=== PATIENT | female | born 1950 | race American Indian/Alaskan Native ===

== ENCOUNTER 2018-01-13 13:40 | Emergency (ER) | payer MEDICARE ==
[2018-01-13 13:45] VITALS: BMI 31.4
[2018-01-13 13:49] VITALS: BP 122/69; PULSE 53; RESP 18; TEMP 97.7; O2SAT 99
--- NOTE | 2018-01-13 14:44 | RAD ---
PROCEDURE: Right Hand Radiographs. HISTORY: 5th finger pain s/p fall COMPARISON: None. FINDINGS: BONES: Bone alignment and mineralization normal. There is no acute displaced fracture or bone destruction. JOINTS: Normal. SOFT TISSUES: Normal. OTHER FINDINGS: None. IMPRESSION: No acute fracture or dislocation.
--- NOTE | 2018-01-13 15:01 | C.PDOC ---
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 Patient states she tripped on uneven pavement and fell onto her outstretched hands. She now complains of pain to her right 5th finger, left palm , and left knee. Patient denies head injury, LOC, neck pain. denies chest pain, shortness of breath, dizziness prior to fall. . Time Seen by Provider: 01/13/18 14:00 Chief Complaint (Nursing): Upper Extremity Problem/Injury History Per: Patient Onset/Duration Of Symptoms: Days Current Symptoms Are (Timing): Still Present Quality: "Pain" Additional History Per: Patient Past Medical History Reviewed: Historical Data, Nursing Documentation, Vital Signs Vital Signs: Last Vital Signs Temp 97.7 F 01/13/18 13:45 Pulse 53 L 01/13/18 13:45 Resp 18 01/13/18 13:45 BP 122/69 01/13/18 13:45 Pulse Ox 99 01/14/18 15:32 - Medical History PMH: No Chronic Diseases Surgical History: No Surg Hx Family History: States: Unknown Family Hx - Social History Hx Alcohol Use: Yes Hx Substance Use: No - Immunization History Hx Tetanus Toxoid Vaccination: No Hx Influenza Vaccination: No Hx Pneumococcal Vaccination: No Review Of Systems Cardiovascular: Negative for: Chest Pain Musculoskeletal: Positive for: Other (pain to right 5th finger, left palm, and left knee ) Neurological: Negative for: Dizziness, Other (head injury/LOC ) Physical Exam - Physical Exam Appears: Non-toxic, No Acute Distress Skin: Normal Color, Warm, Dry Head: Atraumatic, Normacephalic Eye(s): bilateral: Normal Inspection Oral Mucosa: Moist Neck: Normal ROM, No Midline Cervical Tenderness, Supple Chest: Symmetrical, No Deformity, No Tenderness Extremity: Normal ROM (to bilateral upper and lower extremities at all joints), Tenderness (to middle phalanx of right 5th finger and hypothenar eminence of left hand ), No Calf Tenderness, Capillary Refill (less than 2 seconds ), No Deformity, No Swelling Neurological/Psych: Oriented x3, Normal Speech, Normal Cognition Gait: Steady ED Course And Treatment O2 Sat by Pulse Oximetry: 99 (on RA) Pulse Ox Interpretation: Normal - Other Rad right hand XR X-Ray: Interpreted by Me, Viewed By Me, Read By Radiologist Interpretation: PROCEDURE: Right Hand Radiographs. HISTORY: 5th finger pain s /p fall. COMPARISON: None. FINDINGS: BONES: Bone alignment and mineralization normal. There is no acute displaced fracture or bone destruction. JOINTS: Normal. SOFT TISSUES: Normal. OTHER FINDINGS: None. IMPRESSION: No acute fracture or dislocation. Medical Decision Making Medical Decision Making: Progress: Right hand XR ordered and reviewed. Patient given Motrin PO. no fx of right 5th finger, splint applied for comfort, d/c home, f/u ppmd Disposition Counseled Patient/Family Regarding: Studies Performed, Diagnosis, Need For Followup, Rx Given - Disposition Referrals: Laureano Rockwell MD [Staff Provider] - Disposition: HOME/ ROUTINE Disposition Time: 15:00 Condition: GOOD Additional Instructions: Wear splint on 5th finger right for comfort. You may apply cold compresses to finger to help with swelling and pain. Tylenol or Motrin for pain. Follow up with Dr Rockwell in a few days. 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 - Scribe Statement The provider has reviewed the documentation as recorded by the Scribe (Jade Murphy) All medical record entries made by the Scribe were at my direction and personally dictated by me. I have reviewed the chart and agree that the record accurately reflects my personal performance of the history, physical exam, medical decision making, and the department course for this patient. I have also personally directed, reviewed, and agree with the discharge instructions and disposition.
== END 2018-01-13 15:05 | disposition home or self-care (01) ==
LOC: C.ER 13:40
DX: S63.616A Unspecified sprain of right little finger, initial encounter (principal); S60.222A Contusion of left hand, initial encounter; W01.0XXA Fall on same level from slipping, tripping and stumbling without subsequent striking against object, initial encounter; Y92.480 Sidewalk as the place of occurrence of the external cause

== ENCOUNTER 2018-02-09 09:18 | Day surgery (SDC) | payer MEDICARE ==
[2018-02-09 10:03] VITALS: BMI 29.9
[2018-02-09 10:44] VITALS: O2SAT 100
[2018-02-09] MEDS ORDERED: Propofol 10 mg/ml Inj (20 ML) ONE (12:39)
[2018-02-09] MEDS ORDERED: Lactated Ringer's 1,000 ML IV ONE ×2 (12:40)
[2018-02-09 13:29] VITALS: TEMP 98.9
[2018-02-09 13:33] VITALS: RESP 15
[2018-02-09 13:51] VITALS: PULSE 50
[2018-02-09 14:01] VITALS: BP 151/53
== END 2018-02-09 13:58 | disposition home or self-care (01) ==
LOC: C.ENDO 09:18
PROVIDERS: ATTEND Internal Medicine Gastroenterology
DX: Z12.11 Encounter for screening for malignant neoplasm of colon (principal); K64.1 Second degree hemorrhoids; J44.9 Chronic obstructive pulmonary disease, unspecified; F17.210 Nicotine dependence, cigarettes, uncomplicated; K59.00 Constipation, unspecified

== ENCOUNTER 2018-11-06 21:10 | Inpatient (IN) | payer MEDICARE, OTHER ==
[2018-11-06 21:10] VITALS: BMI 29.9
[2018-11-06] MEDS ORDERED: Alum-Mag Hydrox-Simethicone Susp (30 mL) PO STA (22:52)
[2018-11-06 23:21] LABS: BASO % 0.7 % (0.0-2.0); EOS # 0.3 K/uL (0.0-0.7); EOS % 5.4 % (0.0-4.0); HEMOGLOBIN 11.8 g/dL (11.0-16.0); LYMPH # 1.9 K/uL (1.0-4.3); MEAN CELL VOLUME 91.4 fL (81.0-99.0); MEAN CORPUSCULAR HEMOGLOBIN 29.7 pg (27.0-31.0); MEAN CORPUSCULAR HGB CONC 32.4 g/dL (33.0-37.0); MEAN PLATELET VOLUME 9.7 fL (7.2-11.7); MONO # 0.6 K/uL (0.0-0.8); MONO % 11.3 % (0.0-10.0); NEUT # 2.2 K/uL (1.8-7.0); NEUT % 44.6 % (50.0-75.0); NRBC % 0.1 % (0.0-2.0); RBC 3.96 Mil/uL (3.80-5.20)
[2018-11-06] MEDS ORDERED: Alum-Mag Hydrox-Simethicone Susp (30 mL) ONE (23:22)
[2018-11-06 23:30] LABS: INR 1.1
[2018-11-06 23:33] LABS: ALB/GLOB RATIO 1.5 (1.0-2.1); ALT/SGPT 9 U/L (9-52); AST/SGOT 21 U/L (14-36); BLOOD UREA NITROGEN 23 mg/dL (7-17); GFR NON-AFRICAN AMERICAN > 60; LIPASE 115 U/L (23-300)
[2018-11-06 23:45] LABS: B-TYPE NATRIURETIC PEPTIDE 112 pg/mL (0-900)
[2018-11-06 23:53] LABS: SQUAMOUS EPITHIAL 2 /hpf (0-5); URINE BACTERIA RARE (<OCC); URINE BILIRUBIN NEGATIVE (NEGATIVE); URINE BLOOD NEGATIVE (NEGATIVE); URINE CLARITY Clear (Clear); URINE COLOR Yellow (YELLOW); URINE GLUCOSE (UA) NORMAL (Normal); URINE LEUKOCYTE ESTERASE NEG Leu/uL (Negative); URINE PROTEIN NEGATIVE (NEGATIVE)
[2018-11-07] MEDS ORDERED: Iodixanol 320 MG/ML 100 ML BOTTLE IV ONE (00:18)
--- NOTE | 2018-11-07 00:27 | C.PDOC ---
History Of Present Illness 68 year old female presents to the ER with epigastric discomfort since last week. Patient states the pain worsens with bending forward and improves with standing upright, does not change with food. Denies Hx of gastritis or reflux. W as referred by Dr. Rockwell for further evaluation. <Tony He - Last Filed: 11/07/18 00:33> History Per: Patient History/Exam Limitations: no limitations Onset/Duration Of Symptoms: Days Current Symptoms Are (Timing): Still Present Exacerbating Factors: Other (Bending over) Alleviating Factors: Other (Standing upright) Recent travel outside of the [place]: No <Tony He - Last Filed: 11/07/18 00:33> <Reji Edwards - Last Filed: 11/07/18 02:10> Time Seen by Provider: 11/06/18 22:45 Chief Complaint (Nursing): Chest Pain Past Medical History Reviewed: Historical Data, Nursing Documentation, Vital Signs Vital Signs: Last Vital Signs Temp 98.7 F 11/06/18 22:03 Pulse 64 11/06/18 22:03 Resp 20 11/06/18 22:03 BP 154/61 H 11/06/18 22:03 Pulse Ox 98 11/06/18 22:03 - Medical History PMH: COPD, Hypercholesterolemia Denies: Fractures, Chronic Kidney Disease Family History: States: Unknown Family Hx - Social History Hx Alcohol Use: Yes Hx Substance Use: No - Immunization History Hx Tetanus Toxoid Vaccination: No Hx Influenza Vaccination: No Hx Pneumococcal Vaccination: No <Tony He - Last Filed: 11/07/18 00:33> Vital Signs: Last Vital Signs Temp 98.7 F 11/06/18 22:03 Pulse 64 11/06/18 22:03 Resp 20 11/06/18 22:03 BP 154/61 H 11/06/18 22:03 Pulse Ox 98 11/07/18 00:34 <Reji Edwards - Last Filed: 11/07/18 02:10> Review Of Systems Constitutional: Negative for: Fever, Chills Cardiovascular: Negative for: Chest Pain, Palpitations Respiratory: Negative for: Cough, Shortness of Breath Gastrointestinal: Positive for: Abdominal Pain. Negative for: Nausea, Vomiting, Diarrhea Neurological: Negative for: Weakness, Numbness <Neri,Sudhir - Last Filed: 11/07/18 00:33> Physical Exam - Physical Exam Appears: Non-toxic, Other (Obese black female) Skin: Normal Color, Warm, Dry Head: Atraumatic, Normacephalic Eye(s): bilateral: Normal Inspection Oral Mucosa: Moist Neck: Normal, Supple Chest: Symmetrical, No Tenderness Cardiovascular: Rhythm Regular Respiratory: Normal Breath Sounds Gastrointestinal/Abdominal: Soft, No Tenderness, No Distention Back: No CVA Tenderness Neurological/Psych: Oriented x3, Normal Speech <NeriOjSudhir - Last Filed: 11/07/18 00:33> ED Course And Treatment - Laboratory Results Result Diagrams: 11/06/18 23:17 11/06/18 23:17 Lab Results: PT 12.0 SECONDS (9.7-12.2) 11/06/18 23:17 INR 1.1 11/06/18 23:17 APTT 28 SECONDS (21-34) 11/06/18 23:17 D-Dimer, Quantitative 275 ng/mlDDU (0-243) H 11/06/18 23:17 Troponin I < 0.0120 ng/mL (0.00-0.120) 11/06/18 23:17 NT-Pro-B Natriuret Pep 112 pg/mL (0-900) 11/06/18 23:17 Total Bilirubin 0.5 mg/dL (0.2-1.3) 11/06/18 23:17 AST 21 U/L (14-36) 11/06/18 23:17 ALT 9 U/L (9-52) 11/06/18 23:17 Alkaline Phosphatase 81 U/L (38-126) 11/06/18 23:17 Total Protein 6.7 g/dL (6.3-8.3) 11/06/18 23:17 Albumin 4.0 g/dL (3.5-5.0) 11/06/18 23:17 Globulin 2.7 gm/dL (2.2-3.9) 11/06/18 23:17 Albumin/Globulin Ratio 1.5 (1.0-2.1) 11/06/18 23:17 Lipase 115 U/L (23-300) 11/06/18 23:17 Urine Color Yellow (YELLOW) 11/06/18 23:40 Urine Clarity Clear (Clear) 11/06/18 23:40 Urine pH 5.0 (5.0-8.0) 11/06/18 23:40 Ur Specific [place] 1.026 (1.003-1.030) 11/06/18 23:40 Urine Protein Negative mg/dL (NEGATIVE) 11/06/18 23:40 Urine Glucose (UA) Normal mg/dL (Normal) 11/06/18 23:40 Urine Ketones Negative mg/dL (NEGATIVE) 11/06/18 23:40 Urine Blood Negative (NEGATIVE) 11/06/18 23:40 Urine Nitrate Negative (NEGATIVE) 11/06/18 23:40 Urine Bilirubin Negative (NEGATIVE) 11/06/18 23:40 Urine Urobilinogen 2.0 mg/dL (0.2-1.0) H 11/06/18 23:40 Ur Leukocyte Esterase Neg Connie/uL (Negative) 11/06/18 23:40 Urine WBC (Auto) 1 /hpf (0-5) 11/06/18 23:40 Urine RBC (Auto) 1 /hpf (0-3) 11/06/18 23:40 Ur Squamous Epith Cells 2 /hpf (0-5) 11/06/18 23:40 Urine Bacteria Rare (<OCC) 11/06/18 23:40 O2 Sat by Pulse Oximetry: 98 (Room air) Pulse Ox Interpretation: Normal <Tony He E - Last Filed: 11/07/18 00:33> - Laboratory Results Result Diagrams: 11/06/18 23:17 11/06/18 23:17 Lab Results: PT 12.0 SECONDS (9.7-12.2) 11/06/18 23:17 INR 1.1 11/06/18 23:17 APTT 28 SECONDS (21-34) 11/06/18 23:17 D-Dimer, Quantitative 275 ng/mlDDU (0-243) H 11/06/18 23:17 Troponin I < 0.0120 ng/mL (0.00-0.120) 11/06/18 23:17 NT-Pro-B Natriuret Pep 112 pg/mL (0-900) 11/06/18 23:17 Total Bilirubin 0.5 mg/dL (0.2-1.3) 11/06/18 23:17 AST 21 U/L (14-36) 11/06/18 23:17 ALT 9 U/L (9-52) 11/06/18 23:17 Alkaline Phosphatase 81 U/L (38-126) 11/06/18 23:17 Total Protein 6.7 g/dL (6.3-8.3) 11/06/18 23:17 Albumin 4.0 g/dL (3.5-5.0) 11/06/18 23:17 Globulin 2.7 gm/dL (2.2-3.9) 11/06/18 23:17 Albumin/Globulin Ratio 1.5 (1.0-2.1) 11/06/18 23:17 Lipase 115 U/L (23-300) 11/06/18 23:17 Urine Color Yellow (YELLOW) 11/06/18 23:40 Urine Clarity Clear (Clear) 11/06/18 23:40 Urine pH 5.0 (5.0-8.0) 11/06/18 23:40 Ur Specific [place] 1.026 (1.003-1.030) 11/06/18 23:40 Urine Protein Negative mg/dL (NEGATIVE) 11/06/18 23:40 Urine Glucose (UA) Normal mg/dL (Normal) 11/06/18 23:40 Urine Ketones Negative mg/dL (NEGATIVE) 11/06/18 23:40 Urine Blood Negative (NEGATIVE) 11/06/18 23:40 Urine Nitrate Negative (NEGATIVE) 11/06/18 23:40 Urine Bilirubin Negative (NEGATIVE) 11/06/18 23:40 Urine Urobilinogen 2.0 mg/dL (0.2-1.0) H 11/06/18 23:40 Ur Leukocyte Esterase Neg Connie/uL (Negative) 11/06/18 23:40 Urine WBC (Auto) 1 /hpf (0-5) 11/06/18 23:40 Urine RBC (Auto) 1 /hpf (0-3) 11/06/18 23:40 Ur Squamous Epith Cells 2 /hpf (0-5) 11/06/18 23:40 Urine Bacteria Rare (<OCC) 11/06/18 23:40 <Reji Edwards - Last Filed: 11/07/18 02:10> Medical Decision Making Medical Decision Making: offered maalox and pepcid but pt refused. <Tony He E - Last Filed: 11/07/18 00:33> Disposition <Tony He E - Last Filed: 11/07/18 00:33> Discussed With Dr.: Laureano Rockwell Comment: accepted the pt onhis service and took over the care at 2:09 AM Doctor Will See Patient In The: Hospital Counseled Patient/Family Regarding: Studies Performed, Diagnosis - Disposition Disposition Time: 01:00 <Reji Edwards - Last Filed: 11/07/18 02:10> - Disposition Disposition: HOSPITALIZED Condition: FAIR Forms: [facility] ([place]ran) - Clinical Impression Clinical Impression: Chest pain, Bradycardia - Scribe Statement The provider has reviewed the documentation as recorded by the Scribe Ezekiel Morris All medical record entries made by the Scribe were at my direction and personally dictated by me. I have reviewed the chart and agree that the record accurately reflects my personal performance of the history, physical exam, medical decision making, and the department course for this patient. I have also personally directed, reviewed, and agree with the discharge instructions and disposition. <Tony He E - Last Filed: 11/07/18 00:33> Physician Patient Turnover Patient Signed Over To: Reji Edwards Handoff Comments: follow-up CTA and adm to Dr. Rockwell <Tony He E - Last Filed: 11/07/18 00:33> Decision To Admit <Tony He E - Last Filed: 11/07/18 00:33> - Pt Status Changed To: Hospital Disposition Of: Inpatient - Admit Certification Admit to Inpatient:: After my assessment, the patient will require hospitalization for at least two midnights. This is because of the severity of symptoms shown, intensity of services needed, and/or the medical risk in this patient being treated as an outpatient. - InPatient: Physician Admission Certification: I certify that this patient requires 2 or more midnights of care for the following reason:: After my assessment, the patient will require hospitalization for at least two midnights. This is bec ause of the severity of symptoms shown, intensity of services needed, and/or the medical risk in this patient being treated as an outpatient. - . Bed Request Type: Telemetry Admitting Physician: Laureano Rockwell <Reji Edwards - Last Filed: 11/07/18 02:10> - . Patient Diagnosis: Chest pain, Bradycardia
[2018-11-07 07:53] LABS: HDL CHOLESTEROL 60 mg/dL (30-70)
[2018-11-07 08:04] LABS: CK-MB 0.46 ng/mL (0.0-3.38); LDL CHOLESTEROL 120 mg/dL (0-129)
[2018-11-07] MEDS ORDERED: Enoxaparin 30 mg Syringe SC SCH (10:00)
--- NOTE | 2018-11-07 11:25 | CT ---
Date of service: 11/07/2018 CTA chest PE protocol Indication: epigastric, d-dimer 275 Technique: Contiguous axial images were obtained through the chest with intravenous contrast enhancement. Sagittal and coronal reconstructions were generated and reviewed. This CT exam was performed using 1 or more of the following dose reduction techniques: Automated exposure control, adjustment of the MAA and/or kV according to patient size, and/or use of iterative reconstruction technique. IV contrast: 100 mL Visipaque 320 IV Radiation dose (DLP): 353.15 MGy-cm. Comparison: Chest x-ray performed 11/06/18 Findings: Visualized portions of the inferior thyroid gland appear unremarkable. The mediastinal and hilar vascular structures appear within normal limits. Cardiomegaly. Coronary artery calcifications. Atherosclerotic calcifications of the aorta. Bilateral axillary adenopathy measuring up to 2.3 cm on the right with evidence of associated calcification. Sub cm mediastinal/prevascular adenopathy, nonspecific. 7 mm lymph node adjacent to the distal thoracic aorta. No large central or segmental pulmonary embolus evident. Emphysematous changes. No focal consolidation. No pleural effusion. No pneumothorax. Small hiatal hernia. Limited visualized portions of the upper abdomen appear grossly unremarkable. Just to the right of midline at the level of the sternum is a 0.8 x 1.4 cm superficial structure, possibly complex cystic collection (series 2, image 87). Degenerative changes. Osseous demineralization. Mild scoliosis convex to the right. Impression: No large central or segmental pulmonary embolus identified. Cardiomegaly. Bilateral axillary adenopathy measuring up to 2.3 cm on the right with evidence of associated calcification. Sub cm mediastinal/prevascular adenopathy, nonspecific. 7 mm lymph node adjacent to the distal thoracic aorta. Mild emphysematous changes. Just to the right of midline at the level of the sternum is a 0.8 x 1.4 cm superficial structure, possibly complex cystic collection; correlate with direct visualization. Preliminary impression was provided by [employer]. Study marked for PA review.
--- NOTE | 2018-11-07 11:55 | RAD ---
HISTORY: SOB COMPARISON: Chest x-ray performed 02/08/18, CTA chest performed 11/07/18 TECHNIQUE: Chest, one view. FINDINGS: Examination limited by habitus and hypoinflation. LUNGS: No focal consolidation. Please note that chest x-ray has limited sensitivity for the detection of pulmonary masses. PLEURA: No significant pleural effusion identified. No definite pneumothorax . CARDIOVASCULAR: Cardiomegaly. No significant atherosclerotic calcification present. OSSEOUS STRUCTURES: Degenerative changes. VISUALIZED UPPER ABDOMEN: Unremarkable. OTHER FINDINGS: None. IMPRESSION: Cardiomegaly.
--- NOTE | 2018-11-07 18:19 | CARD ---
APPROVED REPORT Date of service: 11/07/2018 EXAM: Two-dimensional and M-mode echocardiogram with Doppler and color Doppler. Other Information Quality : GoodRhythm : Bradycardia INDICATION Chest Pain RISK FACTORS Hyperlipidemia 2D DIMENSIONS IVSd1.0 (0.7-1.1cm)LVDd4.9 (3.9-5.9cm) PWd1.0 (0.7-1.1cm)LA Mupyob44 (18-58mL) LVDs2.9 (2.5-4.0cm)FS (%) 40.4 % LVEF (%)70.9 (>50%)LVEF (Barreto's)65.75 % IVC0.00 cm M-Mode DIMENSIONS RVDd1.66 (2.1-3.2cm)Left Atrium (MM)4.01 (2.5-4.0cm) IVSd0.84 (0.7-1.1cm)Aortic Root2.78 (2.2-3.7cm) LVDd5.57 (4.0-5.6cm)Aortic Cusp Exc.1.96 (1.5-2.0cm) PWd0.87 (0.7-1.1cm)FS (%) 49 % LVDs2.81 (2.0-3.8cm)LVEF (%)72 (>50%) Mitral Valve MV E Zkywwtyh878.6cm/sMV A Buxmzepm82.2cm/sE/A ratio1.6 PEYF237.53 cm/s TDI Lateral E' Peak V7.84cm/sMedial E' Peak V7.90cm/sE/Lateral E'13.6 E/Medial E'13.5 Tricuspid Valve TR Peak Siyxtilg751hi/sTR Peak Gr.[id number] LEFT VENTRICLE The left ventricle is normal size. There is normal left ventricular wall thickness. The left ventricular systolic function is normal. The left ventricular ejection fraction is within the normal range. There is normal LV segmental wall motion. The left ventricular diastolic function is normal. Tissue Doppler is undetermined RIGHT VENTRICLE The right ventricle is normal size. The right ventricular systolic function is normal. ATRIA The left atrial index is moderately increased. The right atrium size is normal. AORTIC VALVE The aortic valve is normal in structure. No aortic regurgitation is present. There is no aortic valvular stenosis. MITRAL VALVE The mitral valve is normal in structure. Mitral regurgitation is trace to mild. TRICUSPID VALVE The tricuspid valve is normal in structure. There is mild tricuspid regurgitation. PULMONIC VALVE The pulmonary valve is normal in structure. There is trace to mild pulmonic valvular regurgitation. GREAT VESSELS The aortic root is normal in size. The IVC is normal in size and collapses >50% with inspiration. PERICARDIAL EFFUSION There is no pericardial effusion. <Conclusion> Normal bi-ventricular function. The left atrial index is moderately increased. Trace to mild mitral, ticuspid and pulmonic regurgitation. There is no pericardial effusion.
[2018-11-07 18:46] LABS: BARBITURATES, UR NEGATIVE (NEGATIVE); BENZODIAZEPINES, UR NEGATIVE (NEGATIVE); OPIATES, UR NEGATIVE (NEGATIVE); PHENCYCLIDINE, UR NEGATIVE (NEGATIVE)
--- NOTE | 2018-11-07 20:05 | CP.PCM.CON ---
<Zeenat Ariza - Last Filed: 11/07/18 20:20> History of Present Illness - History of Present Illness History of Present Illness: GENERAL SURGERY CONSULT NOTE FOR DR. EM 68yo F with PMHx of COPD, hyperlipidemia presented to ED with chest pressure. Pt had normal ECHO and negative cardiac enzymes. Pt had CT chest to rule out PE. It was negative for PE but showed bilateral axillary lymphadenopathy up to 2.3cm on right with associated calcification as well as subcm mediastinal/prevascular adenopathy. Patient previously had workup for axillary lymphadenopathy. She had screening mammogram on 01/13/18 (no masses or groupings of microcalcifications, typically benign calcifications) and breast US on 02/08/18 (4 right axillary tail lymph nodes w/ atypical morphology - BIRADS 4). Pt then had US guided core needle biopsy of right axilla on 02/22/18. Pathology showed: follicular hyperplasia and focal focus of possible progressive transformation of germinal center. Pt states that since her biopsy, her right axilla lymph nodes may be larger. Denies breast masses, nipple discharge or any other symptoms. States her weight has fluctuated up and down for years. PMHx: COPD, hyperlipidemia Surgeries: denies Medications: none (pt states "I don't like going to the doctor") Allergies: penicillin Social history: drinks 2 mixed drinks every other night, smokes 1/2 to 1 PPD Review of Systems - Review of Systems All systems: reviewed and no additional remarkable complaints except (as per HPI) Past Patient History - Past Medical History & Family History Past Medical History?: Yes - Past Social History Smoking Status: Heavy Smoker > 10 Cigarettes Daily - CARDIAC Hx Hypercholesterolemia: Yes - PULMONARY Hx Chronic Obstructive Pulmonary Disease (COPD): Yes - NEUROLOGICAL Hx Neurological Disorder: No - HEENT Hx HEENT Problems: No - RENAL Hx Chronic Kidney Disease: No - ENDOCRINE/METABOLIC Hx Endocrine Disorders: No - HEMATOLOGICAL/ONCOLOGICAL Hx Blood Disorders: No - INTEGUMENTARY Hx Dermatological Problems: No - MUSCULOSKELETAL/RHEUMATOLOGICAL Hx Falls: Yes Hx Fractures: No - GASTROINTESTINAL Hx Gastrointestinal Disorders: Yes Other/Comment: " HEART BURN" - GENITOURINARY/GYNECOLOGICAL Hx Genitourinary Disorders: No - PSYCHIATRIC Hx Psychophysiologic Disorder: No Hx Substance Use: No - SURGICAL HISTORY Hx Surgeries: No - ANESTHESIA Hx Anesthesia: No Hx Anesthesia Reactions: No Hx Malignant Hyperthermia: No Meds Allergies/Adverse Reactions: Allergies Allergy/AdvReac Type Severity Reaction Status Date / Time Penicillins Allergy Severe ITCHING Verified 11/06/18 22:07 - Medications Medications: Current Medications Aspirin (Aspirin Chewable) 81 mg PO DAILY [facility] Last Admin: 11/07/18 15:06 Dose: 81 mg Enoxaparin Sodium (Lovenox) 40 mg SC DAILY [facility] Nicotine (Nicoderm Cq) 1 patch TD DAILY [facility] Rosuvastatin Calcium (Crestor) 20 mg PO HS [facility] Physical Exam - Constitutional Appears: Non-toxic, No Acute Distress - Head Exam Head Exam: ATRAUMATIC, NORMAL INSPECTION - Eye Exam Eye Exam: EOMI, Normal appearance - ENT Exam ENT Exam: Mucous Membranes Moist - Respiratory Exam Respiratory Exam: NORMAL BREATHING PATTERN. absent: Respiratory Distress Additional comments: No masses palpated on bilateral breasts Right axillary lymphadenopathy - Cardiovascular Exam Cardiovascular Exam: +S1, +S2 - GI/Abdominal Exam GI & Abdominal Exam: Soft. absent: Tenderness - Neurological Exam Neurological exam: Alert, CN II-XII Intact, Oriented x3 - Psychiatric Exam Psychiatric exam: Normal Affect, Normal Mood - Skin Skin Exam: Dry, Normal Color, Warm Results - Vital Signs Recent Vital Signs: Last Vital Signs Temp 97.8 F 11/07/18 15:05 Pulse 49 L 11/07/18 16:30 Resp 20 11/07/18 15:05 BP 129/75 11/07/18 15:05 Pulse Ox 100 11/07/18 15:05 - Labs Result Diagrams: 11/06/18 23:17 11/06/18 23:17 Labs: Laboratory Results - last 24 hr 11/06/18 11/06/18 11/06/18 23:17 23:17 23:17 WBC 5.0 RBC 3.96 Hgb 11.8 Hct 36.2 MCV 91.4 MCH 29.7 MCHC 32.4 L RDW 13.0 Plt Count 216 MPV 9.7 Neut % (Auto) 44.6 L Lymph % (Auto) 38.0 [place] % (Auto) 11.3 H Eos % (Auto) 5.4 H Baso % (Auto) 0.7 Neut # (Auto) 2.2 Lymph # (Auto) 1.9 [place] # (Auto) 0.6 Eos # (Auto) 0.3 Baso # (Auto) 0.0 PT 12.0 INR 1.1 APTT 28 D-Dimer, Quantitative 275 H Sodium 136 Potassium 3.5 L Chloride 104 Carbon Dioxide 26 Anion Gap 9 L BUN 23 H Creatinine 0.8 Est GFR ( Amer) > 60 Est GFR (Non-Af Amer) > 60 Random Glucose 95 Calcium 9.0 Total Bilirubin 0.5 AST 21 ALT 9 Alkaline Phosphatase 81 Total Creatine Kinase CK-MB (Mass) Troponin I < 0.0120 NT-Pro-B Natriuret Pep 112 Total Protein 6.7 Albumin 4.0 Globulin 2.7 Albumin/Globulin Ratio 1.5 Triglycerides Cholesterol LDL Cholesterol Direct HDL Cholesterol Lipase 115 TSH 3rd Generation Urine Color Urine Clarity Urine pH Ur Specific [place] Urine Protein Urine Glucose (UA) Urine Ketones Urine Blood Urine Nitrate Urine Bilirubin Urine Urobilinogen Ur Leukocyte Esterase Urine WBC (Auto) Urine RBC (Auto) Ur Squamous Epith Cells Urine Bacteria Urine Opiates Screen Urine Methadone Screen Ur Barbiturates Screen Ur Phencyclidine Scrn Ur Amphetamines Screen U Benzodiazepines Scrn U Oth Cocaine Metabols U Cannabinoids Screen 11/06/18 11/07/18 11/07/18 23:40 07:17 18:18 WBC RBC Hgb Hct MCV MCH MCHC RDW Plt Count MPV Neut % (Auto) Lymph % (Auto) [place] % (Auto) Eos % (Auto) Baso % (Auto) Neut # (Auto) Lymph # (Auto) [place] # (Auto) Eos # (Auto) Baso # (Auto) PT INR APTT D-Dimer, Quantitative Sodium Potassium Chloride Carbon Dioxide Anion Gap BUN Creatinine Est GFR ( Amer) Est GFR (Non-Af Amer) Random Glucose Calcium Total Bilirubin AST ALT Alkaline Phosphatase Total Creatine Kinase 58 CK-MB (Mass) 0.46 Troponin I < 0.0120 NT-Pro-B Natriuret Pep Total Protein Albumin Globulin Albumin/Globulin Ratio Triglycerides 82 Cholesterol 197 LDL Cholesterol Direct 120 HDL Cholesterol 60 Lipase TSH 3rd Generation 0.61 Urine Color Yellow Urine Clarity Clear Urine pH 5.0 Ur Specific [place] 1.026 Urine Protein Negative Urine Glucose (UA) Normal Urine Ketones Negative Urine Blood Negative Urine Nitrate Negative Urine Bilirubin Negative Urine Urobilinogen 2.0 H Ur Leukocyte Esterase Neg Urine WBC (Auto) 1 Urine RBC (Auto) 1 Ur Squamous Epith Cells 2 Urine Bacteria Rare Urine Opiates Screen Negative Urine Methadone Screen Negative Ur Barbiturates Screen Negative Ur Phencyclidine Scrn Negative Ur Amphetamines Screen Negative U Benzodiazepines Scrn Negative U Oth Cocaine Metabols Negative U Cannabinoids Screen Positive H Assessment & Plan - Assessment and Plan (Free Text) Assessment: 68yo F with axillary lymphadenopathy - Plan for OR tomorrow for lymph node biopsy - NPO past midnight - Hold Lovenox in AM - Discussed plan with Dr. Manav Ariza PGY-4 <Mode Em - Last Filed: 11/12/18 20:25> Meds - Medications Medications: Current Medications Aspirin (Aspirin Chewable) 81 mg PO DAILY [facility] Last Admin: 11/12/18 09:04 Dose: 81 mg Guaifenesin (Mucinex La) 600 mg PO BID [facility] Last Admin: 11/12/18 17:27 Dose: 600 mg Nicotine (Nicoderm Cq) 1 patch TD DAILY [facility] Last Admin: 11/12/18 09:04 Dose: 1 patch Rosuvastatin Calcium (Crestor) 20 mg PO HS [facility] Last Admin: 11/11/18 22:04 Dose: 20 mg Results - Vital Signs Recent Vital Signs: Last Vital Signs Temp 98.1 F 11/12/18 16:27 Pulse 56 L 11/12/18 16:27 Resp 18 11/12/18 16:27 BP 118/74 11/12/18 16:27 Pulse Ox 98 11/12/18 16:27 - Labs Result Diagrams: 11/12/18 07:18 11/12/18 07:18 Labs: Laboratory Results - last 24 hr 11/12/18 11/12/18 11/12/18 00:40 07:18 07:18 WBC 5.0 RBC 4.34 Hgb 13.0 Hct 39.9 MCV 91.9 MCH 30.0 MCHC 32.6 L RDW 12.8 Plt Count 218 MPV 10.3 Sodium 137 Potassium 4.1 Chloride 104 Carbon Dioxide 27 Anion Gap 9 L BUN 18 H Creatinine 0.8 Est GFR ( Amer) > 60 Est GFR (Non-Af Amer) > 60 Random Glucose 96 Calcium 9.8 Urine Opiates Screen Negative Urine Methadone Screen Negative Ur Barbiturates Screen Negative Ur Phencyclidine Scrn Negative Ur Amphetamines Screen Negative U Benzodiazepines Scrn Negative U Oth Cocaine Metabols Negative U Cannabinoids Screen Negative Attending/Attestation - Attestation I have personally seen and examined this patient.: Yes I have fully participated in the care of the patient.: Yes I have reviewed all pertinent clinical information: Yes Notes (Text): Pt was seen and examined at bedside Agree with above note and assessment Pt with bradycardia with CT scan findings of B/L Axillary LNpathy Abdomen : Soft, ,NT, ND No peritoneal signs B/L Axillary LNpathy Labs and radiology reviewed Ass: B/L Axillary LNPathy Plan: OR for Axillary LN biopsy Medical clearance NPO, IVF Consent C/w current mx Plan d.w pt in detail Risk and benefit explained in detail.
--- NOTE | 2018-11-07 23:07 | CP.PCM.HP ---
Present on Admission - Present on Admission Any Indicators Present on Admission: No Past Patient History - Past Medical History & Family History Past Medical History?: Yes - Past Social History Smoking Status: Heavy Smoker > 10 Cigarettes Daily - CARDIAC Hx Hypercholesterolemia: Yes - PULMONARY Hx Chronic Obstructive Pulmonary Disease (COPD): Yes - NEUROLOGICAL Hx Neurological Disorder: No - HEENT Hx HEENT Problems: No - RENAL Hx Chronic Kidney Disease: No - ENDOCRINE/METABOLIC Hx Endocrine Disorders: No - HEMATOLOGICAL/ONCOLOGICAL Hx Blood Disorders: No - INTEGUMENTARY Hx Dermatological Problems: No - MUSCULOSKELETAL/RHEUMATOLOGICAL Hx Falls: Yes Hx Fractures: No - GASTROINTESTINAL Hx Gastrointestinal Disorders: Yes Other/Comment: " HEART BURN" - GENITOURINARY/GYNECOLOGICAL Hx Genitourinary Disorders: No - PSYCHIATRIC Hx Psychophysiologic Disorder: No Hx Substance Use: No - SURGICAL HISTORY Hx Surgeries: No - ANESTHESIA Hx Anesthesia: No Hx Anesthesia Reactions: No Hx Malignant Hyperthermia: No Meds Allergies/Adverse Reactions: Allergies Allergy/AdvReac Type Severity Reaction Status Date / Time Penicillins Allergy Severe ITCHING Verified 11/06/18 22:07 Results - Vital Signs Recent Vital Signs: Last Vital Signs Temp 97.8 F 11/07/18 15:05 Pulse 49 L 11/07/18 16:30 Resp 20 11/07/18 15:05 BP 129/75 11/07/18 15:05 Pulse Ox 100 11/07/18 15:05 - Labs Result Diagrams: 11/06/18 23:17 11/06/18 23:17 Labs: Laboratory Results - last 24 hr 11/06/18 11/06/18 11/06/18 23:17 23:17 23:17 WBC 5.0 RBC 3.96 Hgb 11.8 Hct 36.2 MCV 91.4 MCH 29.7 MCHC 32.4 L RDW 13.0 Plt Count 216 MPV 9.7 Neut % (Auto) 44.6 L Lymph % (Auto) 38.0 [place] % (Auto) 11.3 H Eos % (Auto) 5.4 H Baso % (Auto) 0.7 Neut # (Auto) 2.2 Lymph # (Auto) 1.9 [place] # (Auto) 0.6 Eos # (Auto) 0.3 Baso # (Auto) 0.0 PT 12.0 INR 1.1 APTT 28 D-Dimer, Quantitative 275 H Sodium 136 Potassium 3.5 L Chloride 104 Carbon Dioxide 26 Anion Gap 9 L BUN 23 H Creatinine 0.8 Est GFR ( Amer) > 60 Est GFR (Non-Af Amer) > 60 Random Glucose 95 Calcium 9.0 Total Bilirubin 0.5 AST 21 ALT 9 Alkaline Phosphatase 81 Total Creatine Kinase CK-MB (Mass) Troponin I < 0.0120 NT-Pro-B Natriuret Pep 112 Total Protein 6.7 Albumin 4.0 Globulin 2.7 Albumin/Globulin Ratio 1.5 Triglycerides Cholesterol LDL Cholesterol Direct HDL Cholesterol Lipase 115 TSH 3rd Generation Urine Color Urine Clarity Urine pH Ur Specific [place] Urine Protein Urine Glucose (UA) Urine Ketones Urine Blood Urine Nitrate Urine Bilirubin Urine Urobilinogen Ur Leukocyte Esterase Urine WBC (Auto) Urine RBC (Auto) Ur Squamous Epith Cells Urine Bacteria Urine Opiates Screen Urine Methadone Screen Ur Barbiturates Screen Ur Phencyclidine Scrn Ur Amphetamines Screen U Benzodiazepines Scrn U Oth Cocaine Metabols U Cannabinoids Screen 11/06/18 11/07/18 11/07/18 23:40 07:17 18:18 WBC RBC Hgb Hct MCV MCH MCHC RDW Plt Count MPV Neut % (Auto) Lymph % (Auto) [place] % (Auto) Eos % (Auto) Baso % (Auto) Neut # (Auto) Lymph # (Auto) [place] # (Auto) Eos # (Auto) Baso # (Auto) PT INR APTT D-Dimer, Quantitative Sodium Potassium Chloride Carbon Dioxide Anion Gap BUN Creatinine Est GFR ( Amer) Est GFR (Non-Af Amer) Random Glucose Calcium Total Bilirubin AST ALT Alkaline Phosphatase Total Creatine Kinase 58 CK-MB (Mass) 0.46 Troponin I < 0.0120 NT-Pro-B Natriuret Pep Total Protein Albumin Globulin Albumin/Globulin Ratio Triglycerides 82 Cholesterol 197 LDL Cholesterol Direct 120 HDL Cholesterol 60 Lipase TSH 3rd Generation 0.61 Urine Color Yellow Urine Clarity Clear Urine pH 5.0 Ur Specific [place] 1.026 Urine Protein Negative Urine Glucose (UA) Normal Urine Ketones Negative Urine Blood Negative Urine Nitrate Negative Urine Bilirubin Negative Urine Urobilinogen 2.0 H Ur Leukocyte Esterase Neg Urine WBC (Auto) 1 Urine RBC (Auto) 1 Ur Squamous Epith Cells 2 Urine Bacteria Rare Urine Opiates Screen Negative Urine Methadone Screen Negative Ur Barbiturates Screen Negative Ur Phencyclidine Scrn Negative Ur Amphetamines Screen Negative U Benzodiazepines Scrn Negative U Oth Cocaine Metabols Negative U Cannabinoids Screen Positive H
[2018-11-08] MEDS: Lactated Ringer's 1,000 ML IV SCH ×4 (00:19→23:30)
--- NOTE | 2018-11-08 01:51 | CON ---
DATE: 11/07/2018 REASON FOR CONSULTATION: Chest pain. HISTORY OF PRESENT ILLNESS: The patient is a 68-year-old female who is a smoker who smokes two third of a pack a day, has history of hypertension, presented because of her substernal chest pain which she described as heaviness in nature. The patient denies any radiation of her chest discomfort. 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 The patient is unaware of any prior cardiac history. The patient underwent stress test many years ago and was told it was normal and no recent coronary angiography or cardiac intervention. The patient has a history of stenting of right lower extremities few years ago at [facility]. The patient has a history of anterior chest wall cyst and has a history of right axillary lymphadenopathy. She underwent biopsy in the past. SOCIAL HISTORY: She is a smoker. She is nondrinker. MEDICATIONS: Subcutaneous Lovenox 40 mg daily. REVIEW OF SYSTEMS: No nausea or vomiting. No fever or chills. No productive cough. No recent loss of weight. PHYSICAL EXAMINATION: GENERAL: The patient is an elderly female who does not appear to be in any distress. VITAL SIGNS: Blood pressure 136/60, heart rate 46, temperature 98.3, respirations 20. HEENT: Normocephalic. CHEST: Clear. HEART: S1, S2. Regular. ABDOMEN: Soft. EXTREMITIES: No edema. No calf tenderness. LABORATORY DATA: SMA-7, sodium 136, potassium 3.5, chloride 104, CO2 of 26, glucose 95, BUN 23, creatinine 0.8. Two sets of troponins are negative. Lipid profile is within normal limits. TSH level is within normal limits. D-dimer is elevated, 275. PT, PTT, and INR are within normal limits. Hemoglobin and hematocrit 11.8 and 36.2. White count and platelet count are within normal limits. EKG revealed sinus rhythm with nonspecific ST-T wave changes. CT angio revealed bilateral axillary lymphadenopathy measuring up to 2.3 cm on the right with evidence of associated calcification. Subcentimeter mediastinal/prevascular adenopathy. Nonspecific 7 mm lymph node adjacent to the distal thoracic aorta, cardiomegaly. No large central or segmental pulmonary embolus identified. ASSESSMENT: 1. Chest pain. Myocardial infarction ruled out. 2. Hypertension. 3. Sinus bradycardia. 4. History of peripheral vascular disease, status post right lower extremity stenting according to the patient. 5. Right axillary lymphadenopathy. RECOMMENDATIONS: Continue subcutaneous Lovenox 20 mg once a day. Start aspirin 81 mg once a day and supplement potassium with K-Dur 20 mEq now. I will hold beta blockers for now because of sinus bradycardia. Start Crestor 20 mg daily. Obtain urine drug screen and review the echocardiographic study performed today, and send the patient for arterial Doppler of the lower extremities as she complains of cold feeling in the right lower extremity. Emory Avila MD
[2018-11-08 07:23] LABS: MEAN CELL VOLUME 92.6 fL (81.0-99.0); MEAN CORPUSCULAR HGB CONC 32.4 g/dL (33.0-37.0); MEAN PLATELET VOLUME 10.1 fL (7.2-11.7); RED CELL DISTRIBUTION WIDTH 12.9 % (11.5-14.5)
[2018-11-08] MEDS ORDERED: Caffeine Citrated **INJ** 20 MG/ML IV ONE (07:41)
[2018-11-08 08:19] LABS: BLOOD UREA NITROGEN 17 mg/dL (7-17); CALCIUM 9.1 mg/dl (8.6-10.4); GFR NON-AFRICAN AMERICAN > 60
[2018-11-08] MEDS ORDERED: Enoxaparin 40 mg Syringe SC SCH (10:00)
[2018-11-08] MEDS ORDERED: Lidocaine Hydrochloride 0 ML INJ ONE (11:50)
[2018-11-08] MEDS ORDERED: Bupivacaine 0.5%/Epi 1:200,000 (10 ML SOL) ONE (11:51)
[2018-11-08] MEDS ORDERED: ceFAZolin 1 gm in NS 1 GM/100 ML BAG IVPB ONE (11:52)
[2018-11-08] MEDS ORDERED: Bupivacaine 0.25% 20 ML INJ IJ ONE (12:13)
[2018-11-08] MEDS ORDERED: ceFAZolin 1 gm in NS 0 GM/0 ML BAG IVPB ONE (12:13)
[2018-11-08] MEDS ORDERED: Lidocaine/Epinephrine 1% 1:100000 10 ML IJ ONE (12:14)
[2018-11-08] MEDS ORDERED: Vancomycin 1 gm/D5W 200 ml 0 GM/0 ML BAG IVPB ONE (12:16)
[2018-11-08] MEDS ORDERED: Midazolam 2 MG/2 ML VIAL ONE (12:29)
[2018-11-08] MEDS ORDERED: Propofol 10 mg/ml Inj (20 ML) ONE (12:29)
--- NOTE | 2018-11-08 14:16 | CP.PCM.PCO ---
Physician Communication Note - Physician Communication Note Physician Communication Note: OR canceled for today; f/u Cards clearance; will reschedule
--- NOTE | 2018-11-08 14:26 | CARD ---
APPROVED REPORT Date of service: 11/06/2018 EKG Measurement Heart [id number] <Conclusion> Normal sinus rhythm Nonspecific ST and T wave abnormality Abnormal ECG
--- NOTE | 2018-11-08 14:49 | HP ---
CHIEF COMPLAINT: Epigastric discomfort, back pain with a fall last week. HISTORY OF PRESENT ILLNESS: This is a 68-year-old female who saw me with lower back pain, which happened while she was walking. She had a fall. She landed on her buttocks and she had intense pain in her sacral area, in the buttock area and she has difficulty bending, moving, walking. The patient denies any other injuries. The patient came for that evaluation, but she complained of left precordial chest pain, dull, nonradiating, it was not associated with diaphoresis, along with that she had palpitation. She denied any history of dyspnea on exertion, orthopnea or PND. She denies any vertigo. There is no history of polyuria or polydipsia. There is no history of nocturia. There is no history of joint pain, hip pain. There is no history of tingling, numbness, paresthesia. No history of loss of consciousness, seizure-like activity. There is no history of rash. PAST MEDICAL HISTORY: Nothing significant. SOCIAL HISTORY: She is a nonsmoker, non-ETOH user. CURRENT MEDICATIONS: None. PHYSICAL EXAMINATION: GENERAL: An elderly female, in no acute distress. She is complaining of back pain. VITAL SIGNS: Blood pressure 148/64, pulse 48, respiratory rate 20, temperature 98.3. SKIN: No rashes. No bruises. No purpura. HEENT: Head is atraumatic and normocephalic. Negative pallor. Negative jaundice. Extraocular movements are intact. NECK: Supple. No JVD. No lymph node. No thyromegaly. No carotid bruits. CHEST WALL: Bilaterally symmetrical expansion. LUNGS: Clear. No rales. No rhonchi. CARDIOVASCULAR: PMI not localized. S1 and S2 regular. No heave noted. ABDOMEN: Soft and nontender. Bowel sounds are positive. RECTAL: No masses. No bleeding. EXTREMITIES: No clubbing, cyanosis or edema. CENTRAL NERVOUS SYSTEM: Awake, alert and oriented x3. Cranial nerves II through XII are normal. Power 5/5 x4. Plantars are downgoing. ASSESSMENT: 1. Chest pain, along with that there is persistent bradycardia, rule out cardiac ischemia, inferior wall ischemia, rule out heart block. 2. Hypertension. 3. Low back pain due to a fall. It is also not clear whether this fall was triggered by any kind of cardiac event with a syncope. PLAN: So, we will obtain cardiac enzymes x3, thyroid panel, lipid profile, cardiology evaluation, echocardiogram and a nuclear stress test with exercise. CT of the chest also showed lymph nodes in the axilla. We will obtain surgical evaluation for possible biopsy. Laureano Rockwell MD
--- NOTE | 2018-11-08 15:06 | RAD ---
Date of service: 11/08/2018 PROCEDURE: Radiographs of the Sacrum and Coccyx HISTORY: pain COMPARISON: None available. TECHNIQUE: Frontal and lateral views of the sacrum and coccyx FINDINGS: BONES: Diffuse osteopenia suggests osteoporosis. No definite fracture or destructive bony lesion is seen affecting the sacrum or coccyx. Sacroiliac joints are mildly degenerated with incidental moderate degenerative joint disease seen at the bilateral hip joints as well. Sacral arcades appear unremarkable. Note is made of uterine fibroid changes based on popcorn like calcifications at the midline and right parasagittal pelvic soft tissues. SACROILIAC JOINTS: As above. OTHER FINDINGS: None. IMPRESSION: Diffuse osteopenia suggests osteoporosis. No displaced fracture identified affecting the sacrum or coccyx. Incidental uterine fibroid disease.
--- NOTE | 2018-11-08 15:39 | PN ---
DATE: 11/08/2018 SUBJECTIVE: The patient this morning was evaluated in the operating room waiting area prior to planned right axillary node biopsy. The patient, when asked about chest pain, she reported having lower costal chest pain. She is currently in sinus bradycardia in the upper 40s. She denies any dizziness. The patient earlier refused to go for Myoview stress test. PHYSICAL EXAMINATION: VITAL SIGNS: Blood pressure 152/73, heart rate 46, temperature 98.1, respirations 20. HEENT: Normocephalic. CHEST: Clear. HEART: S1 and S2, regular. EXTREMITIES: No edema. LABORATORY DATA: Urine drug screen is positive for cannabinoids. Today's SMA-7 is within normal limits except for anion gap of 9 and creatinine 0.6. Today's hemoglobin, hematocrit, white count and platelet count are within normal limits. Official echocardiography study report revealed normal biventricular function, trace mitral aortic and pulmonary regurgitation. ASSESSMENT: 1. Chest pain, myocardial infarction is ruled out. 2. Sinus bradycardia. 3. Cannabinoid abuse. 4. Right axillary lymphadenopathy. RECOMMENDATIONS: The case was discussed with anesthesia team that the patient has moderate cardiac risk for undergoing right axillary lymph node biopsy and the procedure will be performed after premedicating the patient with atropine 0.5 mg IV push, proceed if the heart rate is above 60 and keep external pacemaker pads as well as further intravenous atropine on standby. However, following that, the plans for surgery was canceled. The patient will be restarted on aspirin and Crestor therapy. The patient was advised to undergo the Myoview stress test and if she still declines, the patient will be for cardiac catheterization and stent. Emory Avila MD
--- NOTE | 2018-11-08 22:08 | CP.PCM.PN ---
Subjective - Date & Time of Evaluation Date of Evaluation: 11/08/18 Time of Evaluation: 08:20 - Subjective Subjective: dictated Objective - Vital Signs/Intake and Output Vital Signs (last 24 hours): Temp Pulse Resp BP Pulse Ox 98.1 F 69 20 152/73 H 95 11/08/18 07:00 11/08/18 16:00 11/08/18 07:00 11/08/18 07:00 11/08/18 07:00 - Medications Medications: Current Medications Aspirin (Aspirin Chewable) 81 mg PO DAILY [facility] Last Admin: 11/08/18 10:07 Dose: Not Given Lactated Ringer's (Lactated Ringer's) 1,000 mls @ 125 mls/hr IV .Q8H [facility] Last Admin: 11/08/18 20:29 Dose: 125 mls/hr Nicotine (Nicoderm Cq) 1 patch TD DAILY [facility] Last Admin: 11/08/18 10:09 Dose: Not Given Rosuvastatin Calcium (Crestor) 20 mg PO HS [facility] Last Admin: 11/08/18 21:41 Dose: 20 mg - Labs Labs: 11/08/18 07:17 11/08/18 07:17 PT 12.0 SECONDS (9.7-12.2) 11/06/18 23:17 INR 1.1 11/06/18 23:17 APTT 28 SECONDS (21-34) 11/06/18 23:17
[2018-11-09] MEDS: Lactated Ringer's 1,000 ML IV SCH ×2 (05:08→06:31)
[2018-11-09] MEDS ORDERED: Caffeine Citrated **INJ** 20 MG/ML IV ONE (07:31)
--- NOTE | 2018-11-09 09:53 | CP.PCM.PN ---
<Zeenat Ariza - Last Filed: 11/09/18 10:00> Subjective - Date & Time of Evaluation Date of Evaluation: 11/09/18 Time of Evaluation: 07:00 - Subjective Subjective: GENERAL SURGERY PROGRESS NOTE FOR DR. EM Patient seen and examined at bedside. Yesterday, OR was cancelled due to pt complaining of CP and concerns about bradycardia. This morning, Pt reports some dizziness, mild CP, denies SOB. Objective - Vital Signs/Intake and Output Vital Signs (last 24 hours): Temp Pulse Resp BP Pulse Ox 98.0 F 45 L 18 153/67 H 99 11/09/18 07:12 11/09/18 07:12 11/09/18 07:12 11/09/18 07:12 11/09/18 07:12 Intake and Output: 11/09/18 11/09/18 06:59 18:59 Intake Total 1000 Balance 1000 - Medications Medications: Current Medications Aspirin (Aspirin Chewable) 81 mg PO DAILY [facility] Last Admin: 11/08/18 10:07 Dose: Not Given Lactated Ringer's (Lactated Ringer's) 1,000 mls @ 125 mls/hr IV .Q8H [facility] Last Admin: 11/09/18 06:31 Dose: Not Given Nicotine (Nicoderm Cq) 1 patch TD DAILY [facility] Last Admin: 11/08/18 10:09 Dose: Not Given Rosuvastatin Calcium (Crestor) 20 mg PO HS [facility] Last Admin: 11/08/18 21:41 Dose: 20 mg - Labs Labs: 11/08/18 07:17 11/08/18 07:17 PT 12.0 SECONDS (9.7-12.2) 11/06/18 23:17 INR 1.1 11/06/18 23:17 APTT 28 SECONDS (21-34) 11/06/18 23:17 - Constitutional Appears: Non-toxic, No Acute Distress - Head Exam Head Exam: ATRAUMATIC, NORMAL INSPECTION - Eye Exam Eye Exam: EOMI, Normal appearance - Respiratory Exam Respiratory Exam: NORMAL BREATHING PATTERN. absent: Respiratory Distress - Cardiovascular Exam Cardiovascular Exam: +S1, +S2 - GI/Abdominal Exam GI & Abdominal Exam: Soft. absent: Distended, Firm, Rigid, Tenderness - Extremities Exam Additional comments: bilateral axillary lymphadenopathy - Neurological Exam Neurological Exam: Alert, Awake, Oriented x3 - Psychiatric Exam Psychiatric exam: Normal Affect, Normal Mood Assessment and Plan - Assessment and Plan (Free Text) Assessment: 68yo F with axillary lymphadenopathy - Plan for OR for lymph node biopsy when patient cleared by cardiology - Per Dr. Avila note yesterday, pt advised to have stress test or will need cardiac cath - Discussed plan with Dr. Manav Ariza PGY-4 <Mode Em - Last Filed: 11/12/18 20:27> Objective - Vital Signs/Intake and Output Vital Signs (last 24 hours): Temp Pulse Resp BP Pulse Ox 98.1 F 56 L 18 118/74 98 11/12/18 16:27 11/12/18 16:27 11/12/18 16:27 11/12/18 16:27 11/12/18 16:27 Intake and Output: 11/12/18 11/13/18 18:59 06:59 Intake Total 450 Balance 450 - Medications Medications: Current Medications Aspirin (Aspirin Chewable) 81 mg PO DAILY [facility] Last Admin: 11/12/18 09:04 Dose: 81 mg Guaifenesin (Mucinex La) 600 mg PO BID [facility] Last Admin: 11/12/18 17:27 Dose: 600 mg Nicotine (Nicoderm Cq) 1 patch TD DAILY [facility] Last Admin: 11/12/18 09:04 Dose: 1 patch Rosuvastatin Calcium (Crestor) 20 mg PO HS [facility] Last Admin: 11/11/18 22:04 Dose: 20 mg - Labs Labs: 11/12/18 07:18 11/12/18 07:18 PT 12.0 SECONDS (9.7-12.2) 11/06/18 23:17 INR 1.1 11/06/18 23:17 APTT 28 SECONDS (21-34) 11/06/18 23:17 Attending/Attestation - Attestation I have personally seen and examined this patient.: Yes I have fully participated in the care of the patient.: Yes I have reviewed all pertinent clinical information, including history, physical exam and plan: Yes Notes (Text): Pt was seen and examined at bedside Agree with above note and assessment Pt with bradycardia with axillary LNpathy Stress test and cardiac cath we will f.u C/w current mx Plan d.w pt in detail Risk and benefit explained in detail.
--- NOTE | 2018-11-09 10:34 | PN ---
DATE: 11/09/2018 SUBJECTIVE: The patient has decreased chest pain. She has axillary lymphadenopathy. She is afebrile. No shortness of breath. She has been seen by Cardiology and she will need workup. PHYSICAL EXAMINATION: VITAL SIGNS: Blood pressure 161/68, pulse 61, respiratory rate 20, temperature 97. LUNGS: Clear. CARDIOVASCULAR SYSTEM: S1, S2, regular. ABDOMEN: Soft. ASSESSMENT AND PLAN: 1. Chest pain with bradycardia, rule out coronary artery disease, rule out sick sinus syndrome. 2. Marijuana use. 3. Hypertension. 4. Axillary lymphadenopathy. The patient will need biopsy. 5. The patient also has back pain which happened as a result of injury and an x-ray of sacrum and coccyx was done. There is no fracture. She has uterine fibroids on the x-ray and she has osteopenia. Continue current medication. Laureano Rockwell MD
--- NOTE | 2018-11-09 11:39 | PN ---
DATE: 11/09/2018 SUBJECTIVE: The patient is still bradycardic. The patient's surgery, OR has been canceled because of persistent bradycardia. Heart rate has dipped down to 46. PHYSICAL EXAMINATION: VITAL SIGNS: Blood pressure 152/73, pulse 46, respiratory rate 20, temperature 98.1. LUNGS: Clear. CARDIOVASCULAR: S1, S2 regular. ABDOMEN: Soft. ASSESSMENT: Severe sign of bradycardia, pending workup. The patient's echocardiogram which was done on 11/07/2018 shows mild tricuspid, mitral, and pulmonic regurgitation with left atrial index moderately increased. Other than that the patient does not have any findings. PLAN: Continue current medications. Monitor the patient. Laureano Rockwell MD
--- NOTE | 2018-11-09 19:43 | PN ---
DATE: 11/09/2018 SUBJECTIVE: The patient denies any chest pain or shortness of breath. She refused to undergo Myoview stress test. PHYSICAL EXAMINATION: VITAL SIGNS: Blood pressure 153/67, heart rate 45, temperature 98, respirations 18. HEENT: Normocephalic. NECK: No JVD. CHEST: Clear. HEART: S1, S2, regular. EXTREMITIES: No edema. ASSESSMENT: 1. Chest pain, myocardial infarction is ruled out. 2. Cannabinoid abuse. 3. Hypertension. 4. Significant right axillary lymphadenopathy. RECOMMENDATIONS: Continue aspirin 81 mg once a day, Crestor 20 mg once a day. Cardiac catheterization procedure and its risks were fully explained to the patient and her daughter. The patient agreed for the procedure and is scheduled for tomorrow at 01:00 p.m. Emory Avila MD
--- NOTE | 2018-11-09 21:34 | CP.PCM.PN ---
Subjective - Date & Time of Evaluation Date of Evaluation: 11/09/18 Time of Evaluation: 08:20 - Subjective Subjective: dictated Objective - Vital Signs/Intake and Output Vital Signs (last 24 hours): Temp Pulse Resp BP Pulse Ox 98.3 F 52 L 20 110/73 99 11/09/18 15:18 11/09/18 17:00 11/09/18 15:18 11/09/18 15:18 11/09/18 15:18 - Medications Medications: Current Medications Aspirin (Aspirin Chewable) 81 mg PO DAILY [facility] Last Admin: 11/09/18 10:16 Dose: 81 mg Nicotine (Nicoderm Cq) 1 patch TD DAILY [facility] Last Admin: 11/09/18 10:16 Dose: 1 patch Rosuvastatin Calcium (Crestor) 20 mg PO HS [facility] Last Admin: 11/08/18 21:41 Dose: 20 mg - Labs Labs: 11/08/18 07:17 11/08/18 07:17 PT 12.0 SECONDS (9.7-12.2) 11/06/18 23:17 INR 1.1 11/06/18 23:17 APTT 28 SECONDS (21-34) 11/06/18 23:17
--- NOTE | 2018-11-10 02:12 | PN ---
DATE: 11/09/2018 SUBJECTIVE: The patient is agreeable for cardiac catheterization. She does not want stress test done. The patient is for cardiac catheterization tomorrow at 1 p.m. No fever, no chills. She denies any chest pain. Cardiac enzymes are negative but she is persistently bradycardic. PHYSICAL EXAMINATION: VITAL SIGNS: Blood pressure 110/73, pulse 50, respiratory rate 20, temperature 98.3. LUNGS: Clear. CVS: S1, S2. Regular. ABDOMEN: Soft, nontender. Bowel sounds are positive. ASSESSMENT: 1. Severe sinus bradycardia, cardiac catheterization tomorrow morning. 2. Hypertension. 3. Lymphadenopathy. PLAN: Monitor the patient. Laureano Rockwell MD
[2018-11-10] MEDS ORDERED: Iohexol 350mg/ml 100 ML ONE (13:14)
[2018-11-10] MEDS ORDERED: Midazolam 2 MG/2 ML VIAL ONE (13:23)
[2018-11-10] MEDS ORDERED: Iodixanol 320 MG/ML 100 ML BOTTLE IV ONE (13:24)
[2018-11-10] MEDS ORDERED: Iodixanol 320 MG/ML 200 ML BOTTLE IV ONE (13:24)
--- NOTE | 2018-11-10 20:19 | CP.PCM.CON ---
History of Present Illness - History of Present Illness History of Present Illness: Cardiac EP consult Chart imaging reviewed Seen examined Discussed with patient and daughter bedside Re: bradycardia Ms. Hawkins was admitted with epigastric pain; a CT chest rule doubt PE but axillary adenopathy was noted; she was scheduled for a simba biopsy however surgery was deferred due to bradycardia She denied syncope dizziness diaphoresis in the past Examination showed normal venous pressures clear lungs and normal heart sounds Telemetry was reviewed: showed heart rates dipping to 44 in sinus rhythm There is no history of syncope diaphoresis; the bradycardia is mild and incidental and needs no intervention at this point; she is at an acceptable risk from an EP standpoint unless a high grade AV block and or symptomatic bradyarrhythmia ensues and is documented Past Patient History - Past Medical History & Family History Past Medical History?: Yes - Past Social History Smoking Status: Heavy Smoker > 10 Cigarettes Daily - CARDIAC Hx Hypercholesterolemia: Yes - PULMONARY Hx Chronic Obstructive Pulmonary Disease (COPD): Yes - NEUROLOGICAL Hx Neurological Disorder: No - HEENT Hx HEENT Problems: No - RENAL Hx Chronic Kidney Disease: No - ENDOCRINE/METABOLIC Hx Endocrine Disorders: No - HEMATOLOGICAL/ONCOLOGICAL Hx Blood Disorders: No - INTEGUMENTARY Hx Dermatological Problems: No - MUSCULOSKELETAL/RHEUMATOLOGICAL Hx Falls: Yes Hx Fractures: No - GASTROINTESTINAL Hx Gastrointestinal Disorders: Yes Other/Comment: " HEART BURN" - GENITOURINARY/GYNECOLOGICAL Hx Genitourinary Disorders: No - PSYCHIATRIC Hx Psychophysiologic Disorder: No Hx Substance Use: No - SURGICAL HISTORY Hx Surgeries: No - ANESTHESIA Hx Anesthesia: No Hx Anesthesia Reactions: No Hx Malignant Hyperthermia: No Meds Allergies/Adverse Reactions: Allergies Allergy/AdvReac Type Severity Reaction Status Date / Time Penicillins Allergy Severe ITCHING Verified 11/06/18 22:07 - Medications Medications: Current Medications Aspirin (Aspirin Chewable) 81 mg PO DAILY [facility] Last Admin: 11/10/18 11:02 Dose: 81 mg Nicotine (Nicoderm Cq) 1 patch TD DAILY [facility] Last Admin: 11/10/18 11:01 Dose: 1 patch Rosuvastatin Calcium (Crestor) 20 mg PO HS [facility] Last Admin: 11/09/18 21:52 Dose: 20 mg Results - Vital Signs Recent Vital Signs: Last Vital Signs Temp 98.2 F 11/10/18 16:15 Pulse 48 L 11/10/18 16:15 Resp 20 11/10/18 16:15 BP 144/73 11/10/18 16:15 Pulse Ox 95 11/10/18 16:15 - Labs Result Diagrams: 11/08/18 07:17 11/08/18 07:17
--- NOTE | 2018-11-10 21:28 | CP.PCM.PN ---
Subjective - Date & Time of Evaluation Date of Evaluation: 11/10/18 Time of Evaluation: 17:40 - Subjective Subjective: dictated Objective - Vital Signs/Intake and Output Vital Signs (last 24 hours): Temp Pulse Resp BP Pulse Ox 98.2 F 56 L 20 144/73 95 11/10/18 16:15 11/10/18 19:00 11/10/18 16:15 11/10/18 16:15 11/10/18 16:15 - Medications Medications: Current Medications Aspirin (Aspirin Chewable) 81 mg PO DAILY [facility] Last Admin: 11/10/18 11:02 Dose: 81 mg Nicotine (Nicoderm Cq) 1 patch TD DAILY [facility] Last Admin: 11/10/18 11:01 Dose: 1 patch Rosuvastatin Calcium (Crestor) 20 mg PO HS [facility] Last Admin: 11/09/18 21:52 Dose: 20 mg - Labs Labs: 11/08/18 07:17 11/08/18 07:17 PT 12.0 SECONDS (9.7-12.2) 11/06/18 23:17 INR 1.1 11/06/18 23:17 APTT 28 SECONDS (21-34) 11/06/18 23:17
--- NOTE | 2018-11-11 02:59 | PN ---
DATE: 11/10/2018 SUBJECTIVE: The patient has been seen by Electrophysiology. The patient is status post cardiac cath which is negative. She has persistent bradycardia, and urine drug screen is positive for marijuana. She is afebrile. No shortness of breath. No cough. No wheezing. PHYSICAL EXAMINATION: VITAL SIGNS: Blood pressure 144/73, pulse 48, respiratory rate 20, temperature 98.2. LUNGS: Clear. CARDIOVASCULAR SYSTEM: S1 and S2. Regular. ABDOMEN: Soft. ASSESSMENT: 1. Marijuana abuse. 2. Hypertension. 3. Negative cardiac catheterization. 4. Lymphadenopathy. PLAN: EP study and possible OR Tuesday. Laureano Rockwell MD
[2018-11-11] MEDS: guaiFENesin 600 mg ER Tab PO SCH ×2 (09:47→17:49)
--- NOTE | 2018-11-11 21:43 | PN ---
DATE: 11/11/2018 SUBJECTIVE: The patient denies any chest pain or shortness of breath. No reported groin bleeding. PHYSICAL EXAMINATION: VITAL SIGNS: Blood pressure 117/74, heart rate 51, temperature 98, and respirations 20. HEENT: Normocephalic. CHEST: Clear. HEART: S1, S2, regular. EXTREMITIES: There is no hematoma. The patient was evaluated by Dr. Aggarwal, the alliance manager and according to Dr. Aggarwal's recommendation that the patient needs no intervention at this point and she is at an unacceptable risk from the AP standpoint unless a high grade AV block and/or symptomatic bradycardia ensues. ASSESSMENT: 1. Chest pain, myocardial infarction ruled out. The patient has unremarkable cardiac circulation. 2. Hypertension. 3. Right axillary lymphadenopathy. RECOMMENDATIONS: Continue aspirin 81 mg once a day. The patient is scheduled for right axillary lymph node biopsy on Tuesday. Case was discussed with primary care physician and with Dr. Em, surgeon. Emory Avila MD
--- NOTE | 2018-11-11 21:54 | CP.PCM.PCO ---
Physician Communication Note - Physician Communication Note Physician Communication Note: Cleared by cardiology. Plan for OR Tuesday for LN biopsy
[2018-11-12 01:03] LABS: BARBITURATES, UR NEGATIVE (NEGATIVE); BENZODIAZEPINES, UR NEGATIVE (NEGATIVE); OPIATES, UR NEGATIVE (NEGATIVE); PHENCYCLIDINE, UR NEGATIVE (NEGATIVE)
[2018-11-12 07:27] LABS: MEAN CELL VOLUME 91.9 fL (81.0-99.0); MEAN CORPUSCULAR HGB CONC 32.6 g/dL (33.0-37.0); MEAN PLATELET VOLUME 10.3 fL (7.2-11.7); RBC 4.34 Mil/uL (3.80-5.20); RED CELL DISTRIBUTION WIDTH 12.8 % (11.5-14.5)
[2018-11-12 07:46] LABS: BLOOD UREA NITROGEN 18 mg/dL (7-17); CALCIUM 9.8 mg/dl (8.6-10.4); GFR NON-AFRICAN AMERICAN > 60
--- NOTE | 2018-11-12 08:00 | CP.PCM.PN ---
<Zeenat Ariza - Last Filed: 11/12/18 08:01> Subjective - Date & Time of Evaluation Date of Evaluation: 11/12/18 Time of Evaluation: 07:00 - Subjective Subjective: GENERAL SURGERY PROGRESS NOTE FOR DR. EM Patient seen and examined at bedside. Denies SOB or CP or any other complaints. Aware of plan for OR tomorrow. Objective - Vital Signs/Intake and Output Vital Signs (last 24 hours): Temp Pulse Resp BP Pulse Ox 98.6 F 49 L 20 149/78 98 11/11/18 23:05 11/12/18 07:35 11/11/18 23:05 11/11/18 23:05 11/11/18 23:05 - Medications Medications: Current Medications Aspirin (Aspirin Chewable) 81 mg PO DAILY [facility] Last Admin: 11/11/18 09:48 Dose: 81 mg Guaifenesin (Mucinex La) 600 mg PO BID [facility] Last Admin: 11/11/18 17:49 Dose: 600 mg Nicotine (Nicoderm Cq) 1 patch TD DAILY [facility] Last Admin: 11/11/18 09:48 Dose: 1 patch Rosuvastatin Calcium (Crestor) 20 mg PO HS [facility] Last Admin: 11/11/18 22:04 Dose: 20 mg - Labs Labs: 11/12/18 07:18 11/12/18 07:18 PT 12.0 SECONDS (9.7-12.2) 11/06/18 23:17 INR 1.1 11/06/18 23:17 APTT 28 SECONDS (21-34) 11/06/18 23:17 - Constitutional Appears: Non-toxic, No Acute Distress - Head Exam Head Exam: ATRAUMATIC, NORMAL INSPECTION - Eye Exam Eye Exam: EOMI, Normal appearance - Respiratory Exam Respiratory Exam: NORMAL BREATHING PATTERN. absent: Respiratory Distress - Cardiovascular Exam Cardiovascular Exam: Bradycardia - Extremities Exam Additional comments: bilateral lymphadenopathy - Neurological Exam Neurological Exam: Alert, Awake, Oriented x3 - Psychiatric Exam Psychiatric exam: Normal Affect, Normal Mood - Skin Skin Exam: Normal Color, Warm Assessment and Plan - Assessment and Plan (Free Text) Assessment: 68yo F with axillary lymphadenopathy - Plan for OR Tuesday for lymph node biopsy - Per Dr. Avila, pt cleared for surgery from cardiology standpoint - NPO after midnight - Procedure was explained to patient, including risks, benefits, and alternatives, written consent obtained and in the chart - Discussed plan with Dr. Manav Ariza PGY-4 <Mode Em - Last Filed: 11/12/18 20:29> Objective - Vital Signs/Intake and Output Vital Signs (last 24 hours): Temp Pulse Resp BP Pulse Ox 98.1 F 56 L 18 118/74 98 11/12/18 16:27 11/12/18 16:27 11/12/18 16:27 11/12/18 16:27 11/12/18 16:27 Intake and Output: 11/12/18 11/13/18 18:59 06:59 Intake Total 450 Balance 450 - Medications Medications: Current Medications Aspirin (Aspirin Chewable) 81 mg PO DAILY [facility] Last Admin: 11/12/18 09:04 Dose: 81 mg Guaifenesin (Mucinex La) 600 mg PO BID [facility] Last Admin: 11/12/18 17:27 Dose: 600 mg Nicotine (Nicoderm Cq) 1 patch TD DAILY [facility] Last Admin: 11/12/18 09:04 Dose: 1 patch Rosuvastatin Calcium (Crestor) 20 mg PO HS [facility] Last Admin: 11/11/18 22:04 Dose: 20 mg - Labs Labs: 11/12/18 07:18 11/12/18 07:18 PT 12.0 SECONDS (9.7-12.2) 11/06/18 23:17 INR 1.1 11/06/18 23:17 APTT 28 SECONDS (21-34) 11/06/18 23:17 Attending/Attestation - Attestation I have personally seen and examined this patient.: Yes I have fully participated in the care of the patient.: Yes I have reviewed all pertinent clinical information, including history, physical exam and plan: Yes Notes (Text): Pt was seen and examined at bedside Agree with above note and assessment Pt is stable clinically Cleared by Language Teacher for LN biopsy OR tomorrow for LN biopsy consent NPO, IVF Plan d.w pt in detail Risk and benefit explained in detail.
[2018-11-12] MEDS: guaiFENesin 600 mg ER Tab PO SCH ×2 (09:04→17:27)
--- NOTE | 2018-11-12 18:42 | PN ---
DATE: 11/12/2018 SUBJECTIVE: The patient denies chest pain or groin bleeding. OBJECTIVE: VITAL SIGNS: Blood pressure 105/61, heart rate 49, temperature 98, respirations 20. HEENT: Normocephalic. CHEST: Clear. HEART: S1, S2 regular. ABDOMEN: Soft. EXTREMITIES: No groin hematoma. Pressure dressing was removed and no pedal edema. LABORATORY: Hematocrit 13 and 39.9. White count and platelet count are within normal limit. Today's SMA-7 is within normal limits except for anion gap of 9 and BUN of 18. ASSESSMENT: 1. Hypertension. 2. Chest pain, unremarkable current circulation. 3. Right axillary lymphadenopathy. 4. Mild sinus bradycardia. RECOMMENDATIONS: Continue aspirin 81 mg once a day, Crestor 20 mg once a day and nicotine patch. The patient will go for right axillary biopsy tomorrow with postoperative telemetry monitoring. Emory Avila MD
--- NOTE | 2018-11-12 19:04 | CP.PCM.PN ---
Subjective - Date & Time of Evaluation Date of Evaluation: 11/11/18 Time of Evaluation: 09:20 - Subjective Subjective: dictated Objective - Vital Signs/Intake and Output Vital Signs (last 24 hours): Temp Pulse Resp BP Pulse Ox 98.1 F 56 L 18 118/74 98 11/12/18 16:27 11/12/18 16:27 11/12/18 16:27 11/12/18 16:27 11/12/18 16:27 Intake and Output: 11/12/18 11/13/18 18:59 06:59 Intake Total 450 Balance 450 - Medications Medications: Current Medications Aspirin (Aspirin Chewable) 81 mg PO DAILY [facility] Last Admin: 11/12/18 09:04 Dose: 81 mg Guaifenesin (Mucinex La) 600 mg PO BID [facility] Last Admin: 11/12/18 17:27 Dose: 600 mg Nicotine (Nicoderm Cq) 1 patch TD DAILY [facility] Last Admin: 11/12/18 09:04 Dose: 1 patch Rosuvastatin Calcium (Crestor) 20 mg PO HS [facility] Last Admin: 11/11/18 22:04 Dose: 20 mg - Labs Labs: 11/12/18 07:18 11/12/18 07:18 PT 12.0 SECONDS (9.7-12.2) 11/06/18 23:17 INR 1.1 11/06/18 23:17 APTT 28 SECONDS (21-34) 11/06/18 23:17
--- NOTE | 2018-11-12 19:04 | CP.PCM.PN ---
Subjective - Date & Time of Evaluation Date of Evaluation: 11/12/18 Time of Evaluation: 09:20 - Subjective Subjective: dictated Objective - Vital Signs/Intake and Output Vital Signs (last 24 hours): Temp Pulse Resp BP Pulse Ox 98.1 F 56 L 18 118/74 98 11/12/18 16:27 11/12/18 16:27 11/12/18 16:27 11/12/18 16:27 11/12/18 16:27 Intake and Output: 11/12/18 11/13/18 18:59 06:59 Intake Total 450 Balance 450 - Medications Medications: Current Medications Aspirin (Aspirin Chewable) 81 mg PO DAILY [facility] Last Admin: 11/12/18 09:04 Dose: 81 mg Guaifenesin (Mucinex La) 600 mg PO BID [facility] Last Admin: 11/12/18 17:27 Dose: 600 mg Nicotine (Nicoderm Cq) 1 patch TD DAILY [facility] Last Admin: 11/12/18 09:04 Dose: 1 patch Rosuvastatin Calcium (Crestor) 20 mg PO HS [facility] Last Admin: 11/11/18 22:04 Dose: 20 mg - Labs Labs: 11/12/18 07:18 11/12/18 07:18 PT 12.0 SECONDS (9.7-12.2) 11/06/18 23:17 INR 1.1 11/06/18 23:17 APTT 28 SECONDS (21-34) 11/06/18 23:17
--- NOTE | 2018-11-12 21:01 | VASCLAB ---
Date of service: 11/09/2018 STUDY DESCRIPTION: Lower Extremity Arterial Exam (PVR). HISTORY: PVD PRIORS: None. TECHNIQUE: Pulse volume recording waveforms and segmental pressures of bilateral lower extremities at multiple levels were obtained. Ankle Brachial Indices (ABIs) were calculated. Report prepared by ZEENAT Gonzalez, RVT RIGHT LOWER EXTREMITY: * Brachial artery: Pressure - 129 mmHg. * High thigh: PVR waveform - Pulsatile * Low thigh: PVR waveform: Pulsatile * Calf: Pressure - 132 mmHg: Ratio - 1.02 PVR waveform: Pulsatile * Posterior tibial Artery: Pressure - 123 mmHg: Ratio - 0.95 PVR waveform: Pulsatile * Dorsalis pedis Artery: Pressure - 131 mmHg: Ratio - 1.02 PVR waveform: Pulsatile Ankle brachial index (INDIRA): 1.02 LEFT LOWER EXTREMITY: * Brachial artery: Pressure - 125 mmHg. * High thigh: PVR waveform - Pulsatile * Low thigh: PVR waveform: Pulsatile * Calf: Pressure - 140 mmHg: Ratio - 1.09 PVR waveform: Pulsatile * Posterior tibial Artery: Pressure - 133 mmHg: Ratio - 1.03 PVR waveform: Pulsatile * Dorsalis pedis Artery: Pressure - 130 mmHg: Ratio - 1.01 PVR waveform: Pulsatile Ankle brachial index (INDIRA): 1.03 OTHER FINDINGS: None significant. IMPRESSION: Right: There was no evidence of hemodynamically significant arterial insufficiency in the right lower extremity. Left: There was no evidence of hemodynamically significant arterial insufficiency in the left lower extremity.
--- NOTE | 2018-11-12 23:17 | PN ---
DATE: 11/12/2018 SUBJECTIVE: The patient is for OR in the a.m. Case discussed with Dr. Em. The patient has been cleared by Surgery. No fever. No chills. No nausea, vomiting. PHYSICAL EXAMINATION: VITAL SIGNS: Blood pressure 118/74, pulse 56, respiratory rate 18, temperature 98.1 LUNGS: Clear. ABDOMEN: Soft. CENTRAL NERVOUS SYSTEM: Awake, alert. ASSESSMENT: 1. Sinus bradycardia. 2. Marijuana use. 3. Lymphadenopathy. PLAN: OR in the a.m. Monitor the patient. Laureano Rockwell MD
[2018-11-13 07:31] LABS: HEMOGLOBIN 14.2 g/dL (11.0-16.0); MEAN CELL VOLUME 91.8 fL (81.0-99.0); MEAN CORPUSCULAR HEMOGLOBIN 30.1 pg (27.0-31.0); MEAN CORPUSCULAR HGB CONC 32.8 g/dL (33.0-37.0); MEAN PLATELET VOLUME 10.2 fL (7.2-11.7); RBC 4.7 Mil/uL (3.80-5.20); WHITE BLOOD COUNT 5.6 K/uL (4.8-10.8)
[2018-11-13 07:56] LABS: BLOOD UREA NITROGEN 19 mg/dL (7-17); CALCIUM 9.9 mg/dl (8.6-10.4); GFR NON-AFRICAN AMERICAN > 60
--- NOTE | 2018-11-13 07:56 | CARDCATH ---
PROCEDURE DATE: 11/10/2018 LEFT HEART CATHETERIZATION INDICATIONS: The patient is a 68-year-old female who has history of hypertension, heavy smoking, peripheral vascular disease, presents with chest pain, [id number] myocardial infarction was ruled out. The patient declined to undergo stress test and cardiac catheterization was performed. The procedure and its risks were fully explained to the patient who understood and signed a written consent. PROCEDURE: After local infiltration with 1% lidocaine, a 6-[place] Islander sheath was placed to the left femoral artery. Left and right coronary angiography was performed with 6-[place] Islander JL4 and JR4 diagnostic catheter. The patient tolerated the procedure well without any complications. ANGIOGRAPHIC FINDINGS: Selective injection of left coronary artery revealed the left main to be a normal vessel that bifurcated into a medium-sized LAD and a medium-sized codominant circumflex artery. Other than a minor ostial LAD narrowing, the left coronary circulation was angiographically unremarkable. Selective injection of the right coronary artery revealed a medium-sized codominant vessel that was angiographically unremarkable, except for narrowing in its proximal to mid portion. CONCLUSION: Unremarkable coronary circulation. This patient can undergo planned left axillary biopsy from the cardiac point of view with . Emory Avila MD
[2018-11-13 08:06] LABS: INR 1.1; PROTHROMBIN TIME 11.6 SECONDS (9.7-12.2)
[2018-11-13] MEDS ORDERED: Bupivacaine 0.25% 20 ML INJ IJ ONE (09:31)
[2018-11-13] MEDS ORDERED: Lidocaine/Epinephrine 1% 1:100000 10 ML IJ ONE (09:31)
[2018-11-13] MEDS ORDERED: Vancomycin 1 g Inj ONE (09:32)
[2018-11-13] MEDS ORDERED: Propofol 10 mg/ml Inj (20 ML) ONE (09:36)
[2018-11-13] MEDS ORDERED: ePHEDrine 50 mg/ml Inj ONE (09:36)
[2018-11-13] MEDS: guaiFENesin 600 mg ER Tab PO SCH (10:02)
[2018-11-13] MEDS ORDERED: Atropine 0.4 mg/ml Inj (1 mL) ONE (10:20)
--- NOTE | 2018-11-13 10:47 | PCM.SURG1 ---
Surgeon's Initial Post Op Note - Surgeon's Notes Surgeon: Dr. Em Plush Cutter: Dr. Bernstein PGY3; Kris Medina Type of Anesthesia: General LMA Pre-Operative Diagnosis: Right axillary lymphadenopathy Operative Findings: see dictation Post-Operative Diagnosis: same Operation Performed: right axillary excisional lymph node biopsy Specimen/Specimens Removed: right axillary lymph node Estimated Blood Loss: EBL {In ML}: 5 Blood Products Given: N/A Drains Used: No Drains Post-Op Condition: Good Date of Surgery/Procedure: 11/13/18 Time of Surgery/Procedure: 10:47
[2018-11-13] MEDS ORDERED: Oxycodone/Acetaminophen 5/325 mg Tab PO PRN (10:48)
[2018-11-13] MEDS ORDERED: HYDROmorphone 0.5 mg/0.5 ml ISec IVP PRN (11:05)
[2018-11-13] MEDS ORDERED: Petrolatum Oint Foilpak (5 gm) TOP PRN (14:42)
--- NOTE | 2018-11-13 16:03 | CP.PCM.PN ---
Subjective - Date & Time of Evaluation Date of Evaluation: 11/13/18 Time of Evaluation: 14:00 - Subjective Subjective: patietn seen today after biopsy , denies any chest pain, sob, c/o pain to biopsy site s/p R axilla lymph node biopsy R axilla biopsy site , dressing, intact, no bleeding noted vss- stable , HR above 50 and patient asymptomatic Objective - Vital Signs/Intake and Output Vital Signs (last 24 hours): Temp Pulse Resp BP Pulse Ox 97.4 F L 53 L 14 132/63 100 11/13/18 12:30 11/13/18 12:30 11/13/18 12:30 11/13/18 12:30 11/13/18 12:30 Intake and Output: 11/13/18 11/13/18 06:59 18:59 Intake Total 600 700 Balance 600 700 - Medications Medications: Current Medications Aspirin (Aspirin Chewable) 81 mg PO DAILY [facility] Last Admin: 11/13/18 10:02 Dose: Not Given Emollient Ointment (Vaseline Oint) 5 gm TOP TID PRN Last Admin: 11/13/18 14:51 Dose: 5 gm Guaifenesin (Mucinex La) 600 mg PO BID [facility] Last Admin: 11/13/18 10:02 Dose: Not Given Hydromorphone HCl (Dilaudid) 0.5 mg IVP Q15M PRN PRN Reason: Pain, severe (8-10) Last Admin: 11/13/18 11:17 Dose: 0.5 mg Vancomycin HCl 1,000 mg/ (Sodium Chloride) 250 mls @ 166.6 mls/hr IVPB Q12H [facility]; Protocol Nicotine (Nicoderm Cq) 1 patch TD DAILY [facility] Last Admin: 11/13/18 10:02 Dose: Not Given Oxycodone/Acetaminophen (Percocet 5/325 Mg Tab) 1 tab PO Q4H PRN PRN Reason: Pain, moderate (4-7) Stop: 11/16/18 10:49 Rosuvastatin Calcium (Crestor) 20 mg PO HS [facility] Last Admin: 11/12/18 21:42 Dose: 20 mg - Labs Labs: 11/13/18 07:24 11/13/18 07:25 PT 11.6 SECONDS (9.7-12.2) 11/13/18 07:24 INR 1.1 11/13/18 07:24 APTT 30 SECONDS (21-34) 11/13/18 07:24 Assessment and Plan - Assessment and Plan (Free Text) Assessment: A/P 68 year old female admitted with chest and dizziness s/p cardiac cath - normal coronaries Dr. Aggarwal consulted for bradycardia- there is no history of syncope diaphoresis; the bradycardia is mild and incidental and needs no intervention at this point D/w Dr. Rockwell, cleared fro disharge home otday after 7 pm if she is stable discharge plan discussed with patient, who understands and agrees with plan
[2018-11-13 16:22] VITALS: BP 143/74; PULSE 50; RESP 20; TEMP 98.3; O2SAT 97
--- NOTE | 2018-11-13 21:26 | CP.PCM.DIS ---
Provider - Provider Date of Admission: 11/07/18 02:08 Attending physician: Laureano Rockwell MD Consults: 11/07/18 08:00 Cardiology Consult Routine Comment: CHESTPAIN Consulting Provider: Emory Avila Consulting Physician: Emory Avila Reason for Consult: CHESTPAIN, BRADYCARDIA 11/07/18 17:54 General Surgery Consult Routine Comment: Consulting Provider: Mode Em Consulting Physician: Mode Em Reason for Consult: lymph node bipsy 11/10/18 14:44 Physician Consult Routine Comment: Consulting Provider: Jak Aggarwal Consulting Physician: Jak Aggarwal Reason for Consult: Manuel, Preop eval Time Spent in preparation of Discharge (in minutes): 30 Hospital Course - Lab Results Lab Results: Most Recent Lab Values WBC 5.6 K/uL (4.8-10.8) 11/13/18 07:24 RBC 4.70 Mil/uL (3.80-5.20) 11/13/18 07:24 Hgb 14.2 g/dL (11.0-16.0) 11/13/18 07:24 Hct 43.1 % (34.0-47.0) 11/13/18 07:24 MCV 91.8 fL (81.0-99.0) 11/13/18 07:24 MCH 30.1 pg (27.0-31.0) 11/13/18 07:24 MCHC 32.8 g/dL (33.0-37.0) L 11/13/18 07:24 RDW 13.0 % (11.5-14.5) 11/13/18 07:24 Plt Count 273 K/uL (130-400) 11/13/18 07:24 MPV 10.2 fL (7.2-11.7) 11/13/18 07:24 Neut % (Auto) 44.6 % (50.0-75.0) L 11/06/18 23:17 Lymph % (Auto) 38.0 % (20.0-40.0) 11/06/18 23:17 [place] % (Auto) 11.3 % (0.0-10.0) H 11/06/18 23:17 Eos % (Auto) 5.4 % (0.0-4.0) H 11/06/18 23:17 Baso % (Auto) 0.7 % (0.0-2.0) 11/06/18 23:17 Neut # (Auto) 2.2 K/uL (1.8-7.0) 11/06/18 23:17 Lymph # (Auto) 1.9 K/uL (1.0-4.3) 11/06/18 23:17 [place] # (Auto) 0.6 K/uL (0.0-0.8) 11/06/18 23:17 Eos # (Auto) 0.3 K/uL (0.0-0.7) 11/06/18 23:17 Baso # (Auto) 0.0 K/uL (0.0-0.2) 11/06/18 23:17 PT 11.6 SECONDS (9.7-12.2) 11/13/18 07:24 INR 1.1 11/13/18 07:24 APTT 30 SECONDS (21-34) 11/13/18 07:24 D-Dimer, Quantitative 275 ng/mlDDU (0-243) H 11/06/18 23:17 Sodium 137 mmol/L (132-148) 11/13/18 07:25 Potassium 4.4 mmol/L (3.6-5.2) 11/13/18 07:25 Chloride 103 mmol/L (98-107) 11/13/18 07:25 Carbon Dioxide 27 mmol/L (22-30) 11/13/18 07:25 Anion Gap 11 (10-20) 11/13/18 07:25 BUN 19 mg/dL (7-17) H 11/13/18 07:25 Creatinine 0.8 mg/dL (0.7-1.2) 11/13/18 07:25 Est GFR ( Amer) > 60 11/13/18 07:25 Est GFR (Non-Af Amer) > 60 11/13/18 07:25 Random Glucose 107 mg/dL (65-105) H 11/13/18 07:25 Calcium 9.9 mg/dl (8.6-10.4) 11/13/18 07:25 Total Bilirubin 0.5 mg/dL (0.2-1.3) 11/06/18 23:17 AST 21 U/L (14-36) 11/06/18 23:17 ALT 9 U/L (9-52) 11/06/18 23:17 Alkaline Phosphatase 81 U/L (38-126) 11/06/18 23:17 Total Creatine Kinase 58 U/L (30-135) 11/07/18 07:17 CK-MB (Mass) 0.46 ng/mL (0.0-3.38) 11/07/18 07:17 Troponin I < 0.0120 ng/mL (0.00-0.120) 11/07/18 07:17 NT-Pro-B Natriuret Pep 112 pg/mL (0-900) 11/06/18 23:17 Total Protein 6.7 g/dL (6.3-8.3) 11/06/18 23:17 Albumin 4.0 g/dL (3.5-5.0) 11/06/18 23:17 Globulin 2.7 gm/dL (2.2-3.9) 11/06/18 23:17 Albumin/Globulin Ratio 1.5 (1.0-2.1) 11/06/18 23:17 Triglycerides 82 mg/dL (0-149) 11/07/18 07:17 Cholesterol 197 mg/dL (0-199) 11/07/18 07:17 LDL Cholesterol Direct 120 mg/dL (0-129) 11/07/18 07:17 HDL Cholesterol 60 mg/dL (30-70) 11/07/18 07:17 Lipase 115 U/L (23-300) 11/06/18 23:17 TSH 3rd Generation 0.61 mIU/L (0.46-4.68) 11/07/18 07:17 Urine Color Yellow (YELLOW) 11/06/18 23:40 Urine Clarity Clear (Clear) 11/06/18 23:40 Urine pH 5.0 (5.0-8.0) 11/06/18 23:40 Ur Specific [place] 1.026 (1.003-1.030) 11/06/18 23:40 Urine Protein Negative mg/dL (NEGATIVE) 11/06/18 23:40 Urine Glucose (UA) Normal mg/dL (Normal) 11/06/18 23:40 Urine Ketones Negative mg/dL (NEGATIVE) 11/06/18 23:40 Urine Blood Negative (NEGATIVE) 11/06/18 23:40 Urine Nitrate Negative (NEGATIVE) 11/06/18 23:40 Urine Bilirubin Negative (NEGATIVE) 11/06/18 23:40 Urine Urobilinogen 2.0 mg/dL (0.2-1.0) H 11/06/18 23:40 Ur Leukocyte Esterase Neg Connie/uL (Negative) 11/06/18 23:40 Urine WBC (Auto) 1 /hpf (0-5) 11/06/18 23:40 Urine RBC (Auto) 1 /hpf (0-3) 11/06/18 23:40 Ur Squamous Epith Cells 2 /hpf (0-5) 11/06/18 23:40 Urine Bacteria Rare (<OCC) 11/06/18 23:40 Urine Opiates Screen Negative (NEGATIVE) 11/12/18 00:40 Urine Methadone Screen Negative (NEGATIVE) 11/12/18 00:40 Ur Barbiturates Screen Negative (NEGATIVE) 11/12/18 00:40 Ur Phencyclidine Scrn Negative (NEGATIVE) 11/12/18 00:40 Ur Amphetamines Screen Negative (NEGATIVE) 11/12/18 00:40 U Benzodiazepines Scrn Negative (NEGATIVE) 11/12/18 00:40 U Oth Cocaine Metabols Negative (NEGATIVE) 11/12/18 00:40 U Cannabinoids Screen Negative (NEGATIVE) 11/12/18 00:40 Discharge Exam - Head Exam Head Exam: ATRAUMATIC, NORMAL INSPECTION Discharge Plan - Discharge Medications Prescriptions: Atorvastatin [Lipitor] 20 mg PO DAILY #30 tab Acetaminophen [Tylenol] 650 mg PO Q6 PRN #30 capsule PRN Reason: Pain, Moderate (4-7) Acetaminophen with Codeine [Tylenol with Codeine #3 Tablet] 1 each PO Q6 PRN #12 tablet PRN Reason: Pain, Severe (8-10) - Follow Up Plan Condition: FAIR Disposition: HOME/ ROUTINE Instructions: Lymph Node Biopsy, Heart Healthy Diet, Chest Pain (DC), Bradycardia (DC), Acetaminophen and Codeine, Atorvastatin Additional Instructions: Please follow up with Dr. Rockwell office in 1 week ( follow up visit and result ) Referrals: Laureano Rockwell MD [Staff Provider] -
--- NOTE | 2018-11-13 21:40 | OP ---
PROCEDURE DATE: 11/13/2018 PREOPERATIVE DIAGNOSES: 1. Bilateral axillary lymphadenopathy. 2. Bradycardia. POSTOPERATIVE DIAGNOSES: 1. Bilateral axillary lymphadenopathy. 2. Bradycardia. PROCEDURE DONE: Right axillary lymph node biopsy, deep. SURGEON: Mode Em MD ASSISTANTS: LULÚ Baer and Laura Bernstein DO, PGY-3 resident ANESTHESIA: General anesthesia with LMA. ESTIMATED BLOOD LOSS: Around 10 mL. DRAINS: None. PATHOLOGY: The large lymph node of approximately 3 x 2 cm was sent for pathology. COMPLICATIONS: None. INTRAOPERATIVE FINDINGS: The patient had multiple enlarged lymph node of right axilla, and the largest lymph node was removed and it was sent off the table for pathology. DESCRIPTION OF PROCEDURE: On intraoperative steps, this is a 68-year-old female who was diagnosed with bilateral axillary lymphadenopathy. The patient was consented for the right axillary lymph node biopsy, brought to the OR, placed supine on the operating table. After induction of the anesthesia, the right axilla and the breast were prepped and draped in the usual sterile fashion. A skin crease incision was made. Upper and lower flaps were created. The clavipectoral fascia was identified, and the dissection was carried down deep into the axilla. A large lymph node was identified and it was excised, and it was sent off the table for the pathology. There were multiple other lymph nodes that were left behind. The cavity was irrigated. The wound was closed in two layers, subcu with a 3-0 Vicryl and skin with a 4-0 Monocryl. Dry sterile dressing was applied. The patient tolerated the procedure well. Count of instrument and gauze was correct. There was no apparent complication. The patient was reversed from anesthesia and sent to the postanesthesia care unit in stable condition. Mode Em MD
--- NOTE | 2018-11-13 22:24 | PN ---
DATE: 11/13/2018 SUBJECTIVE: The patient underwent left axillary lymph node deep excision. She denies any chest pain or shortness of breath at this time. PHYSICAL EXAMINATION: VITAL SIGNS: Blood pressure 143/74, heart rate 50, temperature 98.3, and respirations 20. HEENT: Normocephalic. CHEST: Clear. HEART: S1, S2. Regular. EXTREMITIES: No edema. No hematoma. LABORATORY DATA: Today's hemoglobin and hematocrit 14.1 and 43.1. White count and platelet count are within normal limit. Today's SMA-7: Sodium 134, potassium 4.4, chloride 103, CO2 of 27, glucose 107, BUN 19, and creatinine 0.8. ASSESSMENT: 1. Atypical chest pain, myocardial infarction ruled out, and the patient had unremarkable coronary circulation. 2. Mild sinus bradycardia. 3. Hypertension. 4. Status post deep right axillary lymph node biopsy. RECOMMENDATIONS: Resume aspirin 81 mg once a day once cleared from surgical point of view. Continue Crestor 20 mg once a day. Continue current IV vancomycin and Dilaudid. Emory Avila MD
--- NOTE | 2018-11-15 05:16 | DS ---
DISCHARGE DIAGNOSES: 1. Bradycardia. 2. Marijuana use. 3. Hypertension. 4. Lymphadenopathy. HOSPITAL COURSE: This is a 68-year-old female with history of weakness, dizziness, chest pain, found to be bradycardic, admitted to the floor, started on cardiac enzymes, troponin, cardiology evaluation, underwent cardiac catheterization which is negative. The patient remained bradycardic. Urine drug screen is positive for marijuana. She is feeling better. She had lymphadenopathy. The patient underwent OR, and she is for discharge. PHYSICAL EXAMINATION: VITAL SIGNS: Blood pressure 143/74, pulse 50, respiratory rate 20, and temperature 98.3. LUNGS: Clear. CARDIOVASCULAR SYSTEM: S1 and S2 regular. ABDOMEN: Soft. PLAN: Discharge the patient. Monitor the patient. Laureano Rockwell MD
== END 2018-11-13 21:15 | disposition home or self-care (01) | DRG 264 ==
LOC: C.ER 21:10 → C.6T 11-07 02:08
PROVIDERS: ADMIT Internal Medicine; ATTEND Internal Medicine
PROC: 4A023N7 Measurement of Cardiac Sampling and Pressure, Left Heart, Percutaneous Approach (ICD-10-PCS; principal; 2018-11-10)
PROC: B2151ZZ Fluoroscopy of Left Heart using Low Osmolar Contrast (ICD-10-PCS; 2018-11-10)
PROC: B2111ZZ Fluoroscopy of Multiple Coronary Arteries using Low Osmolar Contrast (ICD-10-PCS; 2018-11-10)
PROC: 07B50ZX Excision of Right Axillary Lymphatic, Open Approach, Diagnostic (ICD-10-PCS; 2018-11-13)
DX: R00.1 Bradycardia, unspecified (principal); R07.9 Chest pain, unspecified; R59.0 Localized enlarged lymph nodes; J44.9 Chronic obstructive pulmonary disease, unspecified; W19.XXXA Unspecified fall, initial encounter; I10 Essential (primary) hypertension; I73.9 Peripheral vascular disease, unspecified; D25.9 Leiomyoma of uterus, unspecified; M85.80 Other specified disorders of bone density and structure, unspecified site; E78.5 Hyperlipidemia, unspecified; E78.00 Pure hypercholesterolemia, unspecified; F12.10 Cannabis abuse, uncomplicated; I37.1 Nonrheumatic pulmonary valve insufficiency; F17.210 Nicotine dependence, cigarettes, uncomplicated; I44.30 Unspecified atrioventricular block; I49.8 Other specified cardiac arrhythmias